=== PATIENT | female | born 1970 | race Two or more races ===

== ENCOUNTER 2017-02-16 14:28 | Outpatient (CLI) | payer MEDICARE, OTHER ==
[~2017-02-16 14:28] MED LIST: ACET325T53 PO; ASPI81TA2 PO; BLOO-367 IN; DOCU-270 PO; Hydralazine Hcl PO; INSU100V28 SQ; Ipratropium Bromide NEB; LEVA1.2524 NEB; LEVO750T21 PO; METF500T PO; NEBU-225 MC; PANT40TA2 PO; PRED20TA PO
== END 2017-02-16 23:59 | disposition home or self-care (01) ==
LOC: RAD 14:28
PROVIDERS: ATTEND Legal Medicine
DX: I51.7 Cardiomegaly (principal); I70.0 Atherosclerosis of aorta; M47.894 Other spondylosis, thoracic region; M40.294 Other kyphosis, thoracic region; M40.46 Postural lordosis, lumbar region; M12.88 Other specific arthropathies, not elsewhere classified, other specified site
CPT/HCPCS: 71020-TC; 72074-TC; 72100-TC

== ENCOUNTER 2019-05-09 14:14 | Inpatient (IN) | payer MEDICARE, MEDICAID ==
[~2019-05-09] VITALS: Ht 167.6 cm; Wt 152.9 kg
[~2019-05-09 14:14] MED LIST changes: +ASPI-1169 PO; -ASPI81TA2 PO
[2019-05-09] MEDS ORDERED: ONDANSETRON HCL/PF 4 MG/2 ML VIAL ONE (15:24)
[2019-05-09] MEDS ORDERED: IV NS 0.9% 1,000 ML BAG IV ONE ×3 (15:30→18:30)
[2019-05-09] MEDS ORDERED: ONDANSETRON HCL/PF 4 MG/2 ML VIAL IVP ONE (15:30)
--- NOTE | 2019-05-09 15:30 | NUR ---
BIBRA79, FROM HOME, C/O CHILLS SINCE THIS MORNING, AFEBRILE, BS 150. PT AAOX4, VSS. ALSO C/O RT LOWER QUAD ABD PAIN. DENIES CP, SOB, DIZZINESS, N/V/D @ THIS TIME. SEEN & EVAL'D BY TASHI ALY. MEDICATED ORDERED. WILL CONT TO MONITOR.
[2019-05-09 15:37] LABS: BASOPHILS % (AUTO) 0.2 % (0.0-2.0); EOSINOPHILS % (AUTO) 0.1 % (0.0-6.0); HEMATOCRIT 44 % (33-45); HEMOGLOBIN 14.8 g/dL (11.5-14.8); LYMPHOCYTES # (AUTO) 0.5 /CMM (0.8-4.8); LYMPHOCYTES % (AUTO) 2.9 % (20.0-44.0); MEAN CORPUSCULAR HGB CONC 34 g/dl (31.0-36.0); MEAN CORPUSCULAR VOLUME 90 fL (82-100); MONOCYTES # (AUTO) 0.3 /CMM (0.1-1.30); MONOCYTES % (AUTO) 1.8 % (2.0-12.0); NEUTROPHILS # (AUTO) 17.3 /CMM (1.8-8.9); PLATELET COUNT (AUTO) 215 /CMM (150-450); RED BLOOD CELL COUNT(AUTO) 4.85 MIL/uL (4.0-5.2); WHITE BLOOD COUNT (AUTO) 18.2 K/uL (4.3-11.0)
[2019-05-09] MEDS ORDERED: MORPHINE SULFATE INJ 2 MG/ML DISP.SYRIN IV ONE (16:30)
[2019-05-09 16:41] LABS: ALBUMIN 3.3 g/dL (3.4-5.0); POTASSIUM 3.9 mmol/L (3.5-5.1); TOTAL PROTEIN, SERUM 7.3 g/dL (6.4-8.2)
[2019-05-09] MEDS ORDERED: KETOROLAC TROMETHAMINE INJ 30 MG/ML VIAL ONE (16:45)
[2019-05-09] MEDS ORDERED: KETOROLAC TROMETHAMINE INJ 30 MG/ML VIAL IV ONE (17:00)
[2019-05-09 17:04] LABS: CALCIUM, SERUM 8.7 mg/dL (8.5-10.1)
[2019-05-09 17:05] LABS: BILIRUBIN,TOTAL 0.7 mg/dL (0.2-1.0)
[2019-05-09 17:18] LABS: BILIRUBIN,DIRECT 0.2 mg/dL (0.0-0.2)
[2019-05-09] MEDS ORDERED: TAMSULOSIN 0.4 MG CAP.SR.24H PO ONE (18:00)
[2019-05-09 18:05] LABS: APPEARANCE,URINE Slightly Cloudy (CLEAR); BILIRUBIN,URINE Negative (NEGATIVE); BLOOD, URINE Large Ery/uL (NEGATIVE); COLOR,URINE Yellow (YELLOW); KETONES,URINE Negative (NEGATIVE); LEUKOCYTE ESTERASE ,URINE Moderate (NEGATIVE); NITRITE, URINE Negative (NEGATIVE); PROTEIN,URINE Trace mg/dl (NEGATIVE); UGLUCOSE Negative (NEGATIVE); UROBILINOGEN,URINE 0.2 EU/dL (0.2)
[2019-05-09] MEDS ORDERED: TAMSULOSIN 0.4 MG CAP.SR.24H ONE (18:05)
[2019-05-09] MEDS ORDERED: LISI10TA59 PO (18:06)
[2019-05-09] MEDS ORDERED: SULF1TAB48 PO (18:06)
[2019-05-09] MEDS ORDERED: CEFTRIAXONE 1GM BAG (ER ONLY) 50 ML IV ONE (18:12)
--- NOTE | 2019-05-09 18:25 | NUR ---
PAGED DR HERNANDEZ-UROLOGY FOR CONSULT
[2019-05-09] MEDS ORDERED: CEFTRIAXONE 1GM BAG (ER ONLY) 1 GM/50 ML PIGGYBACK IV ONE (18:30)
[2019-05-09 18:38] LABS: BACTERIA,URINE Few /HPF (None Seen); SQUAMOUS EPITHELIAL CELL,UR Few /HPF (None Seen); WBC,URINE 21-50 /HPF (0-3)
[2019-05-09 18:39] LABS: MUCUS,URINE Few /LPF (None Seen); URINE AMORPHOUS URATE Few /HPF (None Seen)
--- NOTE | 2019-05-09 19:15 | NUR ---
CALLED NURSING SUP FOR BED
[2019-05-09] MEDS ORDERED: HYDROCODONE/APAP 10/325MG 1 EA TABLET ONE (19:29)
[2019-05-09] MEDS ORDERED: HYDROCODONE/APAP 10/325MG 1 EA TABLET PO ONE (19:30)
[2019-05-09] MEDS ORDERED: IV NS 0.9% 1,000 ML IV PRN (19:58)
[2019-05-09] MEDS ORDERED: DEXTROSE 50%-WATER 50 ML DISP.SYRIN IV PRN (20:00)
[2019-05-09] MEDS ORDERED: Z GUARD REMEDY 2 OZ OINT TP PRN (20:00)
[2019-05-09] MEDS ORDERED: ZOLPIDEM TARTRATE 5 MG TABLET PO PRN (20:00)
[2019-05-09] MEDS ORDERED: MAG HYDROX/AL HYDROX/SIMETH 30 ML UDC PO PRN (20:00)
[2019-05-09] MEDS ORDERED: HYDROCODONE/APAP 5/325MG 1 EACH TABLET PO PRN (20:00)
[2019-05-09] MEDS ORDERED: KETOROLAC TROMETHAMINE INJ 30 MG/ML VIAL IV PRN (20:00)
[2019-05-09] MEDS ORDERED: MAGNESIUM HYDROXIDE 30 ML UDC PO PRN (20:00)
[2019-05-09] MEDS ORDERED: ONDANSETRON HCL/PF 4 MG/2 ML VIAL IVP PRN (20:00)
--- NOTE | 2019-05-09 20:18 | NUR ---
REPORT GIVEN TO LUCRECIA RASMUSSEN FOR MARCK.
--- NOTE | 2019-05-09 20:30 | NUR ---
RN ADMITTING NOTE RECIEVED PT ON ELIDA, AOX4, R/A NO SOB, C/O MILD ABD' PAIN, MED'S GIVEN IN ER, ABLE TO AMBULATE TO BED, IV SITE ON RAC#18G, NS@200ML/HR ORDERED, NPO AFTER MIDNIGHT PER DR HERNANDEZ FOR POSSIBLE STENT PLACEMENT, PT NOTIFIED, WITH CPAP ORDER FOR HS NEEDED, SKIN INTACT, BILAT HEEL REDNESS NOTED, PIC'S TAKEN, ALL NEEDS IN PLACE.
[2019-05-09] MEDS: BLOOD SUGAR DIAGNOSTIC 1 EACH STRIP IN SCH (21:51)
[2019-05-09] MEDS: INSULIN REGULAR, HUMAN 100 UNIT/ML 3 ML VIAL SQ PRN (21:52)
[2019-05-09 22:00] VITALS: BP 108/67
[2019-05-10] VITALS (31 sets, daily range): BP systolic 93–156; BP diastolic 52–74
[2019-05-10] MEDS ORDERED: IV NS 0.9% 1,000 ML BAG IV PRN
[2019-05-10] MEDS: IV NS 0.9% 1,000 ML IV PRN ×3 (00:07→19:17)
--- NOTE | 2019-05-10 04:40 | NUR ---
pt rec'd on room air. pt awake and alert and shows no signs of resp distress noted. pt placed on cpap per md orders. alarms alarms are set and audible. cpap plugged into red outlet. will continue to monitor. Addendum: 05/10/19 at 0449 by BETY ALLEN RT Amended: Links added.
--- NOTE | 2019-05-10 06:13 | NUR ---
RN CLOSING NOTE ENDORSED PT IN BED POSSIBLE STENT PLACEMENT TO DAY BY DR HERNANDEZ, WILL ENDORSE TO AM RN TO OBTAIN CONSENT. IV SITE ON RAC#18G, NS@200ML/HR ORDERED, NPO AFTER MIDNIGHT PER DR HERNANDEZ FOR POSSIBLE STENT PLACEMENT, PT NOTIFIED, WITH CPAP ORDER FOR HS NEEDED, SKIN INTACT, BILAT HEEL REDNESS NOTED, PIC'S TAKEN, ALL NEEDS IN PLACE.
[2019-05-10 07:16] LABS: BASOPHILS % (AUTO) 0.2 % (0.0-2.0); EOSINOPHILS % (AUTO) 0.1 % (0.0-6.0); HEMATOCRIT 38 % (33-45); HEMOGLOBIN 12.6 g/dL (11.5-14.8); LYMPHOCYTES % (AUTO) 4.6 % (20.0-44.0); MEAN CORPUSCULAR HGB CONC 33 g/dl (31.0-36.0); MEAN CORPUSCULAR VOLUME 91 fL (82-100); MONOCYTES % (AUTO) 4.3 % (2.0-12.0); NEUTROPHILS # (AUTO) 20.8 /CMM (1.8-8.9); NEUTROPHILS % (AUTO) 90.8 % (43.0-81.0); PLATELET COUNT (AUTO) 166 /CMM (150-450); RED BLOOD CELL COUNT(AUTO) 4.16 MIL/uL (4.0-5.2); WHITE BLOOD COUNT (AUTO) 22.8 K/uL (4.3-11.0)
[2019-05-10 07:42] LABS: CALCIUM, SERUM 7.9 mg/dL (8.5-10.1); CREATININE 1.3 mg/dL (0.6-1.3); MAGNESIUM 1.3 mg/dL (1.8-2.4); POTASSIUM 3.5 mmol/L (3.5-5.1)
[2019-05-10 07:43] LABS: THYROID STIMULATING HORMONE 1.17 uIU/mL (0.358-3.74)
[2019-05-10] MEDS: BLOOD SUGAR DIAGNOSTIC 1 EACH STRIP IN SCH ×4 (07:57→23:48)
[2019-05-10] MEDS: ACETAMINOPHEN 325 MG TABLET PO PRN ×2 (08:24→19:21)
[2019-05-10] MEDS: METFORMIN 500 MG TABLET PO SCH ×2 (09:00→17:12)
[2019-05-10 10:26] LABS: ABG BASE EXCESS -6.6 mmol/L; ABG OXYGEN SATURATION 99.1 % (92.0-98.5); ABG PCO2 51.4 mmHg (35.0-45.0); ABG PH 7.235 (7.350-7.450); ABG PO2 295.8 mmHg (75.0-100.0); AaDO2 365.8 mmHg; COHb 1.5 % (0.5-1.5); MetHb 0.5 % (0.0-1.5); O2Hb 97.1 % (94.0-97.0); SITE, ABG Left Radial; VENT MODE, BG 15L NON REBREATHER
--- NOTE | 2019-05-10 10:30 | NUR ---
RN NOTE PT WAS OFF CIPAP SINCE 729, OKAY IN THE PROCESS PUMPER, AOX4, NPO EXCEPT MEDS, CO OF HUNGER, HEADACHE AND ABDOMINAL PAIN WITHOUT NAUSEA. TYLENOL GIVEN, RELIEF A LITTLE FROM PAIN OBTAINED. AROUND 09 PT CO ABOUT CHILLS AND BEING COLD, WARM BLANKETS OFFERED, TEMP ORALLY 97.8F, RECTALLY 98.9F, THEN BECAME VERY TACHYPNEIC , RR 33-35 BREATHS/MIN, SATURATION DROPPED TO 66% ON ROOM AIR. RESPIRATORY TEAM NOTIFIED AND ARRIVED, PT PLACE ON OXYGEN NON REBREATHER MASK, ABG DRAWN, WALKER CHOI NOTIFIED. STAT CXR ORDERED, PT PLACED ON BIBAP, ABG RESULTS MADE AWARE TO ESTIVEN CHOI AND ORDERED TO TRANSFER TO ICU. PT FEELS BETTER AFTER OXYGEN TREATMENT, HR DECREASED FROM 151 TO 121, TEMP 100.2F AX. BP 156/54. PT TRANSFERRED TO ICU RM 257, REPORT GIVEN TO LUCRECIA THAKKAR. DR CRAWFORD NOTIFIED. PENDING CXR. DR HERNANDEZ, UROLOGIST [phone], NOTIFIED AT 1117 ABOUT THE SITUATION SINCE PT WAS WAITING FOR LEFT URETERAL STENT PLACEMENT AT TODAY 1230.
--- NOTE | 2019-05-10 11:00 | NUR ---
RN NOTES RECEIVED PT IN ROOM 257, ON BIPAP, ABLE TO COMMUNICATE. O2 SAT 96%, HR IN 120'S, R AC IV G 20 AND L AC IV G 18 SITES , CLEAN,DRY AND INTACT, PT KEPT NPO BUT WANTS TO EAT.SR UP x3, CALL LIGHT WITHIN EASY REACH, BED LOCKED AND IN LOWEST POSITION, CONTINUE TO MONITOR. Addendum: 05/10/19 at 1357 by BIJAN DRIVER RN CORRECTION PT HAS L FA IV SITE G 22 PLEASE DISREGARD L AC IV G 18
--- NOTE | 2019-05-10 11:00 | NUR ---
RT NOTES CALLED TO PATIENTS ROOM BY RN. PATIENT RR 35, WITH DYSPNEA, SPO2 77%. PLACED ON NON REBREATHER 15L 100%. STAT ABG TAKEN. PLACED ON BIPAP 15-5, RATE 10, 35%, AND TRANSPORTED TO ICU PER MD ORDERS. WILL MONITOR CLOSELY. Addendum: 05/10/19 at 1644 by ERIK BURNS RT Amended: Links added.
--- NOTE | 2019-05-10 11:15 | NUR ---
RN NOTES PT IS A/Ox4, REFUSED TO KEEP BIPAP ON ,O2 SAT WNL, NO RESPIRATORY DISTRESS NOTED, DR CRAWFORD NOTIFED, NEW ORDER RECEIVED . CONTINUE TO MONITOR.
--- NOTE | 2019-05-10 11:23 | NUR ---
PT. PLACED INTO 2 L/M VIA NASAL CANNULA AND PT REFUSED BIPAP. BIPAP ON STAND BY @ BEDSIDE. Addendum: 05/10/19 at 1124 by MILI ODOM RT Amended: Links added.
[2019-05-10] MEDS ORDERED: ALBUTEROL FS 2.5 MG/3 ML VIAL.NEB NEB PRN (12:00)
[2019-05-10] MEDS: Magnesium 1GM/D5W 100ML PREMIX 100 ML IV SCH ×2 (12:04→13:16)
[2019-05-10] MEDS: INSULIN REGULAR, HUMAN 100 UNIT/ML 3 ML VIAL SQ PRN ×3 (12:06→23:49)
[2019-05-10 12:43] LABS: ABG BASE EXCESS -2.9 mmol/L; ABG OXYGEN SATURATION 93.4 % (92.0-98.5); ABG PCO2 37.8 mmHg (35.0-45.0); ABG PH 7.378 (7.350-7.450); ABG PO2 63.4 mmHg (75.0-100.0); AaDO2 91.6 mmHg; COHb 1.2 % (0.5-1.5); MetHb 0.5 % (0.0-1.5); O2Hb 91.8 % (94.0-97.0); SITE, ABG Right Radial; VENT MODE, BG nasal cannula
--- NOTE | 2019-05-10 14:45 | NUR ---
RN NOTES PT O2 SAT DOWN TO %82 WHILE SLEEPING , DR YVETTE CHOUDHARY, PT PLACED ON BIPAP PER MD ORDER WHILE PT IS SLEEPING. O
--- NOTE | 2019-05-10 15:00 | NUR ---
PT. WANTS TO SLEEP AND WANTS TO PLACE INTO BIPAP. RN AWARE. Addendum: 05/10/19 at 1516 by MILI ODOM RT Amended: Links added.
--- NOTE | 2019-05-10 15:00 | NUR ---
RN NOTES 02 SAT 92% AT THIS TIME , PT ON BIPAP AND SLEEPING .
--- NOTE | 2019-05-10 16:00 | NUR ---
RN NOTES PT STILL ON BIPAP, O2 SAT IN LOW 90'S , PT SLEEPING , NO SOB NOTED, CONTINUE TO MONITOR .
--- NOTE | 2019-05-10 17:00 | NUR ---
PLACED BACK INTO 2 LPM NASAL CANNULA. BIPAP ON STAND BY @ BEDSIDE Addendum: 05/10/19 at 1732 by MILI ODOM RT Amended: Links added.
--- NOTE | 2019-05-10 17:00 | NUR ---
RN NOTES PT HAS NOT VOIDED YET , WALKER GLUE CLAMP OPERATOR NOTIFED, CAMARA INSERTED PER GLUE CLAMP OPERATOR ORDER , 600CC URINE OUTPUT DRAINED.
[2019-05-10] MEDS: CEFTRIAXONE 1 G in IV D5W 50 ML IV SCH (17:14)
--- NOTE | 2019-05-10 18:00 | NUR ---
RN NOTES VSS STABLE, PT ON 2L O2 N/C AT THIS TIME , NO DISTRESS NOTED, CAMARA DRINING TO GRAVITY WITH CAROL COLOR URINE, NO STONE NOTED IN THE URINE , NS AT 200CC/HR INFUSING ,PT WILL NOT HAVE ANY PROCEDURES TOMORROW PER WALKER BRAND STRATEGIST. WILL ENDORSE TO ACCESS ASSOC NURSE FOR CONTINUITY OF CARE.
--- NOTE | 2019-05-10 19:00 | NUR ---
RECEIVED PATIENT IN NO ACUTE DISTRESS IN BED. PATIENT IS ON RA AND TOLERATING WELL. PATIENT IS A/O X 4 AND ABLE TO MAKE NEEDS KNOWN. PATIENT NOT COMPLAINING OF ANY SHORTNESS OF BREATH, DIFFICULTY BREATHING OR PAIN AT THIS TIME. PATIENT HAS CAMARA CATHETER THAT IS CLEAN DRY INTACT AND PATENT WITH YELLOW URINE DRAINING. PATIENT HAS LEFT FOREARM 22G THAT IS CLEAN DRY INTACT AND PATENT WITH NS @ 200ML/HR. PATIENT HAS RIGHT AC 20G THAT IS CLEAN DRY INTACT AND PATENT WITH SALINE LOCK. BED IN LOW LOCK POSITION WITH RAILS UP X 2. CALL LIGHT WITHIN REACH AND ALL SAFETY MEASURES ENSURED AND CARRIED OUT. WILL CONTINUE TO MONITOR.
[2019-05-10] MEDS ORDERED: TRAMADOL HCL 50 MG TABLET PO PRN ×2 (22:00)
--- NOTE | 2019-05-10 22:00 | NUR ---
PT RCVD ON 2L NC, PLACED BACK ON NOC AVAPS. PT IS ALERT AND AWAKE, NO RESPIRATORY DISTRESS OR SOB NOTED AT THIS TIME . SKIN INTACT. WILL CONTINUE TO MONITOR FOR ANY CHANGES
[2019-05-11] VITALS (29 sets, daily range): BP systolic 78–134; BP diastolic 41–83
[2019-05-11] MEDS: IV NS 0.9% 1,000 ML IV PRN ×3 (00:50→17:59)
[2019-05-11 04:38] LABS: BASOPHILS % (AUTO) 0.4 % (0.0-2.0); EOSINOPHILS % (AUTO) 0.8 % (0.0-6.0); HEMATOCRIT 37 % (33-45); HEMOGLOBIN 12.3 g/dL (11.5-14.8); LYMPHOCYTES # (AUTO) 1.4 /CMM (0.8-4.8); LYMPHOCYTES % (AUTO) 13.2 % (20.0-44.0); MEAN CORPUSCULAR HGB CONC 33 g/dl (31.0-36.0); MEAN CORPUSCULAR VOLUME 91 fL (82-100); MONOCYTES # (AUTO) 0.8 /CMM (0.1-1.30); MONOCYTES % (AUTO) 7.5 % (2.0-12.0); NEUTROPHILS # (AUTO) 8.5 /CMM (1.8-8.9); NEUTROPHILS % (AUTO) 78.1 % (43.0-81.0); PLATELET COUNT (AUTO) 130 /CMM (150-450); RED BLOOD CELL COUNT(AUTO) 4.09 MIL/uL (4.0-5.2); WHITE BLOOD COUNT (AUTO) 10.8 K/uL (4.3-11.0)
[2019-05-11 04:46] LABS: CALCIUM, SERUM 8.5 mg/dL (8.5-10.1); CREATININE 1.4 mg/dL (0.6-1.3); POTASSIUM 3.8 mmol/L (3.5-5.1)
--- NOTE | 2019-05-11 07:37 | NUR ---
PATIENT REMAINS IN NO ACUTE DISTRESS IN BED. PATIENT DID NOT HAVE ANY SIGNIFICANT CHANGE IN CONDITION DURING SHIFT. ALL NEEDS MET, ALL ORDERS CARRIED OUT. WILL ENDORSE CARE TO AM RN FOR CONTINUITY OF CARE.
[2019-05-11] MEDS: INSULIN REGULAR, HUMAN 100 UNIT/ML 3 ML VIAL SQ PRN ×4 (07:42→22:55)
--- NOTE | 2019-05-11 07:45 | NUR ---
ENGINEERING CONSULTANT: pt.is awake, Ox4, got tramadol around 06.00, now no pain, was on nocturnal Bipap, now n/c 2L, O2sat. WNL, no SOB, SR, SBP over 100, urine out 2000ml, little hematuria one episode over night by report, WBC down to 10.8, is in room, updated with all above
[2019-05-11] MEDS: BLOOD SUGAR DIAGNOSTIC 1 EACH STRIP IN SCH ×4 (07:46→22:56)
--- NOTE | 2019-05-11 08:50 | NUR ---
AUTISM MOTOR SPECIALIST: ESTIVEN Gonzalez is in room, updated with pt.current status, VS, pain level, IVF, I/O, nocturnal Bipap, meds, labs, see new orders
[2019-05-11] MEDS: METFORMIN 500 MG TABLET PO SCH ×2 (09:02→16:53)
--- NOTE | 2019-05-11 11:30 | NUR ---
NURSE SEXUAL ASSAULT: is updated with pt.current status, VS, O2sat. on 2 L n/c, IVF, I/O, pain level, labs
[2019-05-11] MEDS: ACETAMINOPHEN 325 MG TABLET PO PRN (11:35)
--- NOTE | 2019-05-11 15:30 | NUR ---
CERTIFIED PHARMACY TECHNICIAN: pt.is A/Ox4, no c/o, no Pain, no SOB, SR, SBP over 100, O2sat. over 94%, ordered transfer to [facility]/Tele
--- NOTE | 2019-05-11 17:00 | NUR ---
REFURBISH TECHNICIAN: pt.is transferred to [facility], full report given, included Dr.Peleg ott
--- NOTE | 2019-05-11 17:17 | NUR ---
rogers rn notes received pt from g[facility]ell gaytan (icu). pt belongings transferred/chart/bipap equipment. pt on monitor sr 80's. vss. oriented to unit. 500ml in simental bag. will cont to monitor.
[2019-05-11] MEDS: CEFTRIAXONE 1 G in IV D5W 50 ML IV SCH (17:23)
--- NOTE | 2019-05-11 19:00 | NUR ---
rogers rn notes pt stable, sitting in bed, talking on phone. no s/sx of resp distress. will endorse to pm nurse for hamlet.
[2019-05-12] VITALS: BP 113/74
[2019-05-12] MEDS: IV NS 0.9% 1,000 ML IV PRN ×2 (01:44→10:09)
[2019-05-12 04:00] VITALS: BP 128/74
[2019-05-12 06:31] LABS: BASOPHILS % (AUTO) 0.4 % (0.0-2.0); EOSINOPHILS % (AUTO) 1.7 % (0.0-6.0); HEMATOCRIT 37 % (33-45); HEMOGLOBIN 12.3 g/dL (11.5-14.8); LYMPHOCYTES # (AUTO) 1.7 /CMM (0.8-4.8); LYMPHOCYTES % (AUTO) 24.6 % (20.0-44.0); MEAN CORPUSCULAR HGB CONC 33 g/dl (31.0-36.0); MEAN CORPUSCULAR VOLUME 91 fL (82-100); MONOCYTES # (AUTO) 0.5 /CMM (0.1-1.30); MONOCYTES % (AUTO) 6.6 % (2.0-12.0); NEUTROPHILS # (AUTO) 4.6 /CMM (1.8-8.9); NEUTROPHILS % (AUTO) 66.7 % (43.0-81.0); PLATELET COUNT (AUTO) 125 /CMM (150-450); RED BLOOD CELL COUNT(AUTO) 4.07 MIL/uL (4.0-5.2); WHITE BLOOD COUNT (AUTO) 6.8 K/uL (4.3-11.0)
[2019-05-12 06:52] LABS: ALBUMIN 2.1 g/dL (3.4-5.0); BILIRUBIN,TOTAL 0.2 mg/dL (0.2-1.0); CALCIUM, SERUM 8.6 mg/dL (8.5-10.1); CREATININE 0.5 mg/dL (0.6-1.3); MAGNESIUM 1.6 mg/dL (1.8-2.4); PHOSPHORUS 3.6 mg/dL (2.5-4.9); POTASSIUM 3.9 mmol/L (3.5-5.1); TOTAL PROTEIN, SERUM 6.1 g/dL (6.4-8.2)
--- NOTE | 2019-05-12 07:00 | NUR ---
RN AM SHIFT NOTE PATIENT AWAKE ALERT AND ORIENTED. REQUEST FOR REMOVAL OF BIPAP. RN ASSESS RESPIRATORY STATUS, NON LABORED AND SATURATION WNL. PATIENT VERBALIZED NO DISTRESS AT THIS TIME. PATIENT VERBALIZE NO SEVERE PAIN AT THIS TIME. IV PATENT AND NO INFILTRATION, SINUS RHYTHM ON MONITOR. BED IN LOW POSITION, CALL LIGHT WITHIN REACH. CONTINUE TO MONITOR.
[2019-05-12 08:00] VITALS: BP 126/77
[2019-05-12] MEDS: BLOOD SUGAR DIAGNOSTIC 1 EACH STRIP IN SCH ×4 (08:01→22:58)
[2019-05-12] MEDS: METFORMIN 500 MG TABLET PO SCH ×2 (08:46→17:23)
[2019-05-12] MEDS: Magnesium 1GM/D5W 100ML PREMIX 100 ML IV SCH ×2 (10:07→11:18)
[2019-05-12 12:00] VITALS: BP 128/88
[2019-05-12] MEDS: INSULIN REGULAR, HUMAN 100 UNIT/ML 3 ML VIAL SQ PRN ×3 (12:18→22:59)
--- NOTE | 2019-05-12 15:00 | NUR ---
TOOL CRIB MANAGER NOTE RECEIVED REPORT FROM ANDREW SINGER. PT A/OX4, AWAKE AND CHILDREN AT BEDSIDE. NO SIGN OF RESPIRATORY/CARDIAC DISTRESS OR SOB NOTED. ON MONITOR SINUS RHYTHM. NO COMPLAIN OF PAIN. BED IN LOW POSITION, CALL LIGHT WITHIN REACH. BEDSIDE COMMODE. CONTINUE TO MONITOR.
[2019-05-12 16:00] VITALS: BP 125/60
[2019-05-12] MEDS: CEFTRIAXONE 1 G in IV D5W 50 ML IV SCH (18:22)
--- NOTE | 2019-05-12 18:52 | NUR ---
LOCATION DIRECTOR NOTE PT RESTING AT BEDSIDE COMFORTABLY. ON TELE MONITOR SR WITH HR 76. NO RESPIRATORY/CARDIAC DISTRESS OR SOB AT THIS TIME. SAFETY MEASURES IN PLACE. BED LOW, LOCKED, CALL LIGHT WITHIN REACH. ALL NEEDS ATTENDANT. WILL ENDORSE TO PM NURSE FOR MARCK.
[2019-05-12 20:00] VITALS: BP 128/71
[2019-05-13] VITALS: BP 128/71
[2019-05-13] MEDS: IV NS 0.9% 1,000 ML IV PRN (02:50)
[2019-05-13 04:00] VITALS: BP 113/72
[2019-05-13 07:08] LABS: BASOPHILS % (AUTO) 0.5 % (0.0-2.0); HEMATOCRIT 37 % (33-45); HEMOGLOBIN 12.3 g/dL (11.5-14.8); LYMPHOCYTES # (AUTO) 1.8 /CMM (0.8-4.8); LYMPHOCYTES % (AUTO) 32.1 % (20.0-44.0); MEAN CORPUSCULAR HGB CONC 33 g/dl (31.0-36.0); MEAN CORPUSCULAR VOLUME 90 fL (82-100); MONOCYTES # (AUTO) 0.4 /CMM (0.1-1.30); MONOCYTES % (AUTO) 6.9 % (2.0-12.0); NEUTROPHILS # (AUTO) 3.4 /CMM (1.8-8.9); NEUTROPHILS % (AUTO) 58.5 % (43.0-81.0); PLATELET COUNT (AUTO) 159 /CMM (150-450); WHITE BLOOD COUNT (AUTO) 5.7 K/uL (4.3-11.0)
[2019-05-13 07:24] LABS: ALBUMIN 2.2 g/dL (3.4-5.0); BILIRUBIN,TOTAL 0.2 mg/dL (0.2-1.0); CALCIUM, SERUM 8.6 mg/dL (8.5-10.1); CREATININE 0.5 mg/dL (0.6-1.3); MAGNESIUM 1.4 mg/dL (1.8-2.4); PHOSPHORUS 4.8 mg/dL (2.5-4.9); POTASSIUM 3.5 mmol/L (3.5-5.1); TOTAL PROTEIN, SERUM 6.3 g/dL (6.4-8.2)
--- NOTE | 2019-05-13 07:30 | NUR ---
RN NOTES RECEIVED PATIENT IN BED, ASLEEP BUT AWAKEN BY VERBAL STIMULI, ON BIPAP FROM NIGHT, TOLERATING WELL, NOT ON ANY FORM DISTRESS, NO COMPLAINTS OF PAIN OF ANY KIND, PATIENT ABLE TO MAKE NEEDS KNOWN, SINUS RHYTHM ON THE MONITOR, HR ON THE 60'S. IV ACCESS ON THE LEFT HAND G [address], DRESSING INTACT, FLUSHES WELL. PATIENT ABLE TO MOVE ABOUT IN BED. ENCOURAGE TO VERBALIZE FEELINGS AND CONCERNS/ CALL FOR HELP OR ASSISTANCE. SAFETY MEASURES OBSERVED AND MAINTAINED. CALL LIGHT PLACED WITHIN REACH, WILL CONTINUE TO MONIKER ATTEND TO NEEDS
[2019-05-13 08:00] VITALS: BP 124/83
[2019-05-13] MEDS: BLOOD SUGAR DIAGNOSTIC 1 EACH STRIP IN SCH ×2 (08:15→12:12)
[2019-05-13] MEDS: METFORMIN 500 MG TABLET PO SCH (08:17)
[2019-05-13] MEDS: INSULIN REGULAR, HUMAN 100 UNIT/ML 3 ML VIAL SQ PRN (08:18)
[2019-05-13] MEDS: Magnesium 1GM/D5W 100ML PREMIX 100 ML IV SCH ×3 (10:10→12:12)
--- NOTE | 2019-05-13 12:00 | NUR ---
RN NOTES SEEN AND EXAMINED BY DR. FALL, WITH ORDERS FOR DISCHARGE. ORDERS NOTED AND CARRIED OUT. PLAN OF CARE DISCUSSED WITH THE PATIENT. FACILITATED DISCHARGE. PATIENT ASKED TO BE DISCHARGED WHEN DAUGHTER ARRIVES TO PICK HER UP. CLAIMED TO HAVE RECEIVED PNEUMONIA AND FLU VACCINE AT DR. FALL'S CLINIC.
--- NOTE | 2019-05-13 14:00 | NUR ---
RN NOTES PATIENT DISCHARGE. DAUGHTER AT BEDSIDE. PATIENT REFUSED FOOT PICTURES. ALL VALUABLES ACCOUNTED FOR AND RETURNED BACK TO THE PATIENT. ALL DISCHARGE AND MEDICATION INSTRUCTIONS GIVEN TO THE PATIENT. PRESCRIPTION AND DISCHARGE PACKET HANDED DOWN TO THE PATIENT. ID BAND REMOVED. IV ACCESS DISCONTINUED. ALL MEDICATION RETURNED BACK FROM THE PATIENT. PATIENT WENT OUT OF THE UNIT ACCOMPANIED BY DAUGHTER
[2019-05-15 06:07] LABS: *SPE A/G RATIO 0.8 (0.7-1.7); *SPE ALBUMIN 2.3 g/dL (2.9-4.4); *SPE ALPHA-1-GLOBULIN 0.3 g/dL (0.0-0.4); *SPE M-SPIKE Not Observed g/dL (Not Observed); *SPEGAMMA GLOBULIN 0.7 g/dL (0.4-1.8)
[2019-05-15 14:07] LABS: PTH, INTACT 40 pg/mL (15-65)
== END 2019-05-13 14:00 | disposition home or self-care (01) | DRG 871 ==
LOC: ER 14:17 → MEDSG1 20:01 → TELE1 05-10 10:09 → ICU 05-10 10:41 → TELE-TD 05-11 16:59 → TELE1 05-12 10:16 → MEDSG1 05-13 10:09
PROVIDERS: ATTEND Legal Medicine
PROC: 5A09457 Assistance with Respiratory Ventilation, 24-96 Consecutive Hours, Continuous Positive Airway Pressure (ICD-10-PCS; principal; 2019-05-10)
DX: A41.9 Sepsis, unspecified organism (principal); J96.02 Acute respiratory failure with hypercapnia; N17.0 Acute kidney failure with tubular necrosis; E66.2 Morbid (severe) obesity with alveolar hypoventilation; Z68.43 Body mass index [BMI] 50.0-59.9, adult; N13.6 Pyonephrosis; I10 Essential (primary) hypertension; E11.9 Type 2 diabetes mellitus without complications; K42.9 Umbilical hernia without obstruction or gangrene; J44.9 Chronic obstructive pulmonary disease, unspecified; B96.4 Proteus (mirabilis) (morganii) as the cause of diseases classified elsewhere; E83.42 Hypomagnesemia; F17.200 Nicotine dependence, unspecified, uncomplicated; Z79.82 Long term (current) use of aspirin; Z79.4 Long term (current) use of insulin
CPT/HCPCS: 36415; 36600; 71045-TC; 80048-TC; 80053-TC; 80061-TC; 80076-TC; 81000-TC; 82550-TC; 82803-TC; 82962-TC; 83605-TC; 83690-TC; 83735-TC; 83970; 84100-TC; 84155; 84165; 84443-TC; 84703-TC; 85025-TC; 85610-TC; 87081-TC; 87086-TC; 87186-TC; 94799-TC; A4217; G0378; J0696; J1815; J1885; J2405; J3475; J7030; J7060

== ENCOUNTER 2019-10-05 08:20 | Outpatient (CLI) | payer MEDICARE, OTHER ==
[~2019-10-05 08:20] MED LIST changes: -ACET325T53 PO; -ASPI-1169 PO; -BLOO-367 IN; -DOCU-270 PO; -Hydralazine Hcl PO; -INSU100V28 SQ; -Ipratropium Bromide NEB; -LEVA1.2524 NEB; -LEVO750T21 PO; +LISI-605 PO; -NEBU-225 MC; -PANT40TA2 PO; -PRED20TA PO; +SULF1TAB48 PO
[2019-10-05 10:05] LABS: BASOPHILS % (AUTO) 0.7 % (0.0-2.0); EOSINOPHILS % (AUTO) 1.2 % (0.0-6.0); HEMATOCRIT 44 % (33-45); HEMOGLOBIN 14.4 g/dL (11.5-14.8); LYMPHOCYTES # (AUTO) 1.8 /CMM (0.8-4.8); LYMPHOCYTES % (AUTO) 35.8 % (20.0-44.0); MEAN CORPUSCULAR HGB CONC 33 g/dl (31.0-36.0); MEAN CORPUSCULAR VOLUME 91 fL (82-100); MONOCYTES # (AUTO) 0.5 /CMM (0.1-1.30); MONOCYTES % (AUTO) 9.5 % (2.0-12.0); NEUTROPHILS # (AUTO) 2.7 /CMM (1.8-8.9); NEUTROPHILS % (AUTO) 52.8 % (43.0-81.0); PLATELET COUNT (AUTO) 184 /CMM (150-450); RED BLOOD CELL COUNT(AUTO) 4.86 MIL/uL (4.0-5.2); WHITE BLOOD COUNT (AUTO) 5.2 K/uL (4.3-11.0)
[2019-10-05 10:19] LABS: ALBUMIN 3.2 g/dL (3.4-5.0); BILIRUBIN,TOTAL 0.3 mg/dL (0.2-1.0); CALCIUM, SERUM 8.7 mg/dL (8.5-10.1); CREATININE 0.6 mg/dL (0.6-1.3); POTASSIUM 4.2 mmol/L (3.5-5.1); TOTAL PROTEIN, SERUM 7.5 g/dL (6.4-8.2)
[2019-10-05] MEDS ORDERED: IOHEXOL-300 100 ML VIAL IV ONE (10:33)
[2019-10-05] MEDS ORDERED: CT SWABBABLE VALVE TRANS SET 1 EA INFUS.SET MC ONE (10:33)
[2019-10-05] MEDS ORDERED: IV NS 0.9% 250 ML IV ONE (10:33)
== END 2019-10-05 23:59 | disposition home or self-care (01) ==
LOC: CT 08:20
PROVIDERS: ATTEND Legal Medicine
DX: N20.0 Calculus of kidney (principal); I10 Essential (primary) hypertension; D64.9 Anemia, unspecified; D68.59 Other primary thrombophilia; J98.11 Atelectasis; K42.9 Umbilical hernia without obstruction or gangrene; R53.1 Weakness
CPT/HCPCS: 36415; 74178; 80053; 85025; 85610; 85730; J7050; Q9967

== ENCOUNTER 2021-01-05 19:21 | Inpatient (IN) | payer MEDICARE, OTHER ==
[~2021-01-05] VITALS: Ht 170.2 cm; Wt 150.1 kg
[~2021-01-05 19:21] MED LIST changes: -LISI-605 PO; +LISI10TA30 PO
[2021-01-05] MEDS ORDERED: ACETAMINOPHEN ES 500 MG TABLET ONE (19:50)
[2021-01-05] MEDS ORDERED: CYCLOBENZAPRINE 10 MG TABLET ONE (19:50)
[2021-01-05] MEDS ORDERED: ACETAMINOPHEN ES 500 MG TABLET PO ONE (20:00)
[2021-01-05] MEDS ORDERED: IV NS 0.9% 1,000 ML BAG IV ONE (20:00)
[2021-01-05] MEDS ORDERED: CYCLOBENZAPRINE 10 MG TABLET PO ONE (20:00)
--- NOTE | 2021-01-05 20:05 | NUR ---
BIBFAMILY FROM HOME TO ER BED 12. AAOX4. NOT IN RESOP DISTRESS. CAME IN FOR R FLANK PAIN STARTED TODAY. PER PT, IT FEELS LIKE WHEN SHE HAD A KIDNEY STONE. PAIN IS 9/10. PROVIDER WAS AT THE BEDSIDE FOR EVAL. ORDERS RECEIVED, NOTED AND CARRIED OUT. IV LINE ESTABLISHED ON R AC 20G, BLOOD DRAWN. URINE COLLECTED AND SENT TO LAB
[2021-01-05 20:13] LABS: BASOPHILS # (AUTO) 0.1 /CMM (0.0-0.2); BASOPHILS % (AUTO) 0.6 % (0.0-2.0); EOSINOPHILS % (AUTO) 1.7 % (0.0-6.0); HEMATOCRIT 46 % (33-45); HEMOGLOBIN 15.3 g/dL (11.5-14.8); LYMPHOCYTES # (AUTO) 2.7 /CMM (0.8-4.8); LYMPHOCYTES % (AUTO) 25.6 % (20.0-44.0); MEAN CORPUSCULAR HGB CONC 34 g/dl (31.0-36.0); MEAN CORPUSCULAR VOLUME 92 fL (82-100); MONOCYTES # (AUTO) 0.6 /CMM (0.1-1.30); MONOCYTES % (AUTO) 5.6 % (2.0-12.0); NEUTROPHILS % (AUTO) 66.5 % (43.0-81.0); PLATELET COUNT (AUTO) 221 /CMM (150-450); RED BLOOD CELL COUNT(AUTO) 4.94 MIL/uL (4.0-5.2); WHITE BLOOD COUNT (AUTO) 10.6 K/uL (4.3-11.0)
[2021-01-05 20:18] LABS: BILIRUBIN,URINE NEGATIVE (NEGATIVE); COLOR,URINE YELLOW (YELLOW); LEUKOCYTE ESTERASE ,URINE MODERATE (NEGATIVE); NITRITE, URINE POSITIVE (NEGATIVE); PROTEIN,URINE 100 mg/dl (NEGATIVE); UGLUCOSE NEGATIVE (NEGATIVE); UROBILINOGEN,URINE 0.2 EU/dL (0.2)
[2021-01-05 20:21] LABS: CALCIUM, SERUM 9.3 mg/dL (8.5-10.1); CREATININE 0.9 mg/dL (0.6-1.3); POTASSIUM 4.1 mmol/L (3.5-5.1)
[2021-01-05 20:24] LABS: BACTERIA,URINE 4+ /HPF (None Seen); RBC,URINE 51-80 /HPF (0-2); SQUAMOUS EPITHELIAL CELL,UR Few /HPF (None Seen); WBC,URINE TOO NUMEROUS TO COUN /HPF (0-3)
[2021-01-05 20:25] LABS: CALCIUM OXALATE CRYSTALS,UR Few /HPF (None Seen)
[2021-01-05 20:27] LABS: ALBUMIN 3.2 g/dL (3.4-5.0); BILIRUBIN,DIRECT 0.1 mg/dL (0.0-0.2); BILIRUBIN,TOTAL 0.2 mg/dL (0.2-1.0); TOTAL PROTEIN, SERUM 7.5 g/dL (6.4-8.2)
[2021-01-05] MEDS ORDERED: CEFTRIAXONE 1GM BAG (ER ONLY) 1 GM/50 ML PIGGYBACK IV ONE (20:30)
--- NOTE | 2021-01-05 20:43 | NUR ---
BLOOD CULTURE COLLECTED AND SENT TO LAB
[2021-01-05] MEDS ORDERED: ONDANSETRON HCL/PF 4 MG/2 ML VIAL IVP PRN (23:00)
[2021-01-05] MEDS ORDERED: KETOROLAC TROMETHAMINE INJ 30 MG/ML VIAL IV PRN (23:00)
[2021-01-05] MEDS ORDERED: Z GUARD REMEDY 2 OZ OINT TP PRN (23:00)
[2021-01-05] MEDS ORDERED: MAG HYDROX/AL HYDROX/SIMETH 30 ML UDC PO PRN (23:00)
[2021-01-05] MEDS ORDERED: MAGNESIUM HYDROXIDE 30 ML UDC PO PRN (23:00)
[2021-01-05] MEDS ORDERED: ACETAMINOPHEN 325 MG TABLET PO PRN (23:00)
[2021-01-05] MEDS ORDERED: ZOLPIDEM TARTRATE 5 MG TABLET PO PRN (23:00)
[2021-01-05] MEDS ORDERED: HYDROCODONE/APAP 5/325MG TABLET PO PRN (23:00)
--- NOTE | 2021-01-05 23:15 | NUR ---
REPORT GIVEN TO LUCERCIA MARION FOR MARCK
--- NOTE | 2021-01-05 23:20 | NUR ---
PT TRANSPORTED TO UNIT ON [place] WITH EMT ANDN RN AT BEDSIDE ON STABLE CONDITION.
[2021-01-05 23:22] VITALS: BP 115/57
[2021-01-05 23:30] VITALS: BP 115/57
--- NOTE | 2021-01-06 00:18 | NUR ---
CALLED THE RT RE: CPAP.
[2021-01-06] MEDS ORDERED: ZOSYN IVPB 3.375 G in IV D5W 50ml IV SCH (00:30)
--- NOTE | 2021-01-06 00:36 | NUR ---
RT CAME TO START THE CPAP.
[2021-01-06] MEDS: ENOXAPARIN SODIUM 40 MG/0.4 ML DISP.SYRIN SQ SCH ×2 (00:39→21:42)
[2021-01-06] MEDS: IV NS 0.9% 1,000 ML IV PRN (00:40)
[2021-01-06] MEDS ORDERED: MEROPENEM 500 MG in IV NS 0.9% 50 ML IV SCH (01:00)
[2021-01-06] MEDS ORDERED: MEROPENEM 500 MG in IV NS 0.9% 50 ML IV ONE (02:00)
[2021-01-06] MEDS ORDERED: MEROPENEM 500 MG VIAL IV ONE (02:38)
[2021-01-06 07:07] LABS: BASOPHILS % (AUTO) 0.5 % (0.0-2.0); EOSINOPHILS % (AUTO) 2.6 % (0.0-6.0); HEMATOCRIT 43 % (33-45); HEMOGLOBIN 14.2 g/dL (11.5-14.8); LYMPHOCYTES # (AUTO) 2.7 /CMM (0.8-4.8); LYMPHOCYTES % (AUTO) 37.1 % (20.0-44.0); MEAN CORPUSCULAR HGB CONC 33 g/dl (31.0-36.0); MEAN CORPUSCULAR VOLUME 93 fL (82-100); MONOCYTES # (AUTO) 0.5 /CMM (0.1-1.30); MONOCYTES % (AUTO) 7.1 % (2.0-12.0); NEUTROPHILS # (AUTO) 3.9 /CMM (1.8-8.9); NEUTROPHILS % (AUTO) 52.7 % (43.0-81.0); PLATELET COUNT (AUTO) 196 /CMM (150-450); RED BLOOD CELL COUNT(AUTO) 4.61 MIL/uL (4.0-5.2); WHITE BLOOD COUNT (AUTO) 7.3 K/uL (4.3-11.0)
[2021-01-06 07:28] LABS: CALCIUM, SERUM 8.3 mg/dL (8.5-10.1); CREATININE 0.6 mg/dL (0.6-1.3); MAGNESIUM 1.9 mg/dL (1.8-2.4); PHOSPHORUS 3.9 mg/dL (2.5-4.9); POTASSIUM 4.3 mmol/L (3.5-5.1)
[2021-01-06] MEDS ORDERED: ALBU18HF2 INH (07:57)
[2021-01-06] MEDS ORDERED: GLIP2.5T3 PO (07:57)
[2021-01-06] MEDS ORDERED: METF750T46 PO (07:57)
[2021-01-06 08:00] VITALS: BP 124/73
--- NOTE | 2021-01-06 08:31 | NUR ---
WOUND CARE CONSULT: PT PRESENTS WITH REDNESS AND DRY LESIONS TO HEELS, PRESENT ON ADMISSION. VARICOSITIES NOTED TO LOWER LEGS. PT REFUSED FULL SKIN ASSESSMENT AND STATES THAT SHE IS CONTINENT AND AMBULATORY. PT REPORTS ITCHING OF HEELS. DPM CONSULT CALLED TO DR HAMPAPUR. [facility]SON IN AGREEMENT WITH PLAN OF CARE.
[2021-01-06] MEDS ORDERED: DEXTROSE 50%-WATER 50 ML DISP.SYRIN IV PRN (10:30)
[2021-01-06] MEDS ORDERED: ALBUTEROL FS 2.5 MG/3 ML VIAL.NEB NEB PRN (11:00)
--- NOTE | 2021-01-06 11:30 | NUR ---
iv not functioning-removed and restarted lt. hand with #22 Angio
[2021-01-06] MEDS: INSULIN REGULAR, HUMAN 100 UNIT/ML 3 ML VIAL SQ PRN ×3 (12:38→21:52)
[2021-01-06] MEDS: BLOOD SUGAR DIAGNOSTIC 1 EACH STRIP IN SCH ×3 (12:42→21:39)
[2021-01-06] MEDS: MEROPENEM 500 MG in IV NS 0.9% 100 ML IV SCH ×2 (13:10→21:39)
[2021-01-06 16:00] VITALS: BP 125/69
[2021-01-06] MEDS ORDERED: METFORMIN 500 MG TABLET PO SCH (17:00)
--- NOTE | 2021-01-06 18:00 | NUR ---
yaritza in and orders for foot cream.
[2021-01-06] MEDS: glipiZIDE XL 2.5 MG TAB.OSM.24 PO SCH (18:06)
[2021-01-06] MEDS: CLOTRIMAZOLE/BETAMETASONE DIPROPIONATE 15 GM TUBE TP SCH (18:06)
[2021-01-06] MEDS: METFORMIN XR 500 MG TAB.SR.24H PO SCH (18:14)
--- NOTE | 2021-01-06 19:30 | NUR ---
MS RN OPENING NOTE RECEIVED PATIENT IN BED. A/OX4. TOLERATING ROOM AIR. RESPIRATIONS ARE EVEN AND UNLABORED. NO S/S SOB NOTED. NO C/O PAIN AT THIS TIME. IN NO APPARENT DISTRESS. IV ACCESS IN LEFT HAND #22 RUNNING NS@75ML/HR. BED IS LOW AND LOCKED, HOB ELEVATED IN SEMI FOWLERS, SIDE RIALS U PX2, CALL LIGHT WITHIN REACH. WILL CONTINUE TO MONITOR THROUGHOUT SHIFT.
[2021-01-06 20:00] VITALS: BP 122/60
[2021-01-06 20:35] VITALS: BP 122/60
--- NOTE | 2021-01-06 20:40 | NUR ---
MS RN NOTE CALLED NABEEL CAPONE, TO INFORM HIM THAT THERE IS AN ORDER FOR BIPAP CHANGES.
[2021-01-07] MEDS: MEROPENEM 500 MG in IV NS 0.9% 100 ML IV SCH ×3 (04:46→21:32)
[2021-01-07] MEDS: IV NS 0.9% 1,000 ML IV PRN (04:48)
[2021-01-07] MEDS: BLOOD SUGAR DIAGNOSTIC 1 EACH STRIP IN SCH ×4 (06:35→21:32)
[2021-01-07 06:36] LABS: BASOPHILS % (AUTO) 0.5 % (0.0-2.0); EOSINOPHILS % (AUTO) 2.5 % (0.0-6.0); HEMATOCRIT 43 % (33-45); HEMOGLOBIN 14.5 g/dL (11.5-14.8); LYMPHOCYTES # (AUTO) 2.6 /CMM (0.8-4.8); LYMPHOCYTES % (AUTO) 33.7 % (20.0-44.0); MEAN CORPUSCULAR HGB CONC 33 g/dl (31.0-36.0); MEAN CORPUSCULAR VOLUME 93 fL (82-100); MONOCYTES # (AUTO) 0.4 /CMM (0.1-1.30); NEUTROPHILS # (AUTO) 4.6 /CMM (1.8-8.9); NEUTROPHILS % (AUTO) 58.3 % (43.0-81.0); PLATELET COUNT (AUTO) 196 /CMM (150-450); RED BLOOD CELL COUNT(AUTO) 4.68 MIL/uL (4.0-5.2); WHITE BLOOD COUNT (AUTO) 7.8 K/uL (4.3-11.0)
[2021-01-07] MEDS: INSULIN REGULAR, HUMAN 100 UNIT/ML 3 ML VIAL SQ PRN ×4 (06:36→21:48)
--- NOTE | 2021-01-07 06:43 | NUR ---
MS RN CLOSING NOTE PATIENT RESTING IN BED. A/OX4. WAS ON NOC BIPAP UNTIL NOW. NO RESP DISTRESS. NO C/O PAIN THROUGHOUT SHIFT. NO DISTRESS. IV ACCESS MAINTAINED IN LEFT HAND #22 RUNNING NS@75ML/HR. BED REMAINS LOW AND LOCKED, HOB ELEVATED IN SEMI FOWLERS, SIDE RIALS UP X2, CALL LIGHT WITHIN REACH. WILL ENDORSE TO ONCOMING SHIFT
[2021-01-07 07:06] LABS: CALCIUM, SERUM 8.8 mg/dL (8.5-10.1); CREATININE 0.6 mg/dL (0.6-1.3); MAGNESIUM 1.9 mg/dL (1.8-2.4); PHOSPHORUS 4.4 mg/dL (2.5-4.9); POTASSIUM 4.1 mmol/L (3.5-5.1)
[2021-01-07 07:51] VITALS: BP 131/82
[2021-01-07] MEDS: CLOTRIMAZOLE/BETAMETASONE DIPROPIONATE 15 GM TUBE TP SCH ×2 (09:22→16:26)
[2021-01-07] MEDS: LISINOPRIL (5MG) 5 MG TABLET PO SCH (09:22)
[2021-01-07] MEDS: glipiZIDE XL 2.5 MG TAB.OSM.24 PO SCH (09:22)
[2021-01-07 16:00] VITALS: BP 114/87
[2021-01-07] MEDS: METFORMIN XR 500 MG TAB.SR.24H PO SCH (17:26)
--- NOTE | 2021-01-07 20:00 | NUR ---
MS RN OPENING NOTES Patient is awake, A&Ox4. No signs of distress. Denies pain or discomfort. All safety measures in place.
[2021-01-07 20:14] VITALS: BP 119/55
--- NOTE | 2021-01-07 20:30 | NUR ---
DR. LOVE UROLOGIST IN TO SEE THE PATIENT.
[2021-01-07] MEDS: ENOXAPARIN SODIUM 40 MG/0.4 ML DISP.SYRIN SQ SCH (21:35)
--- NOTE | 2021-01-08 01:30 | NUR ---
C diff specimen collected and dropped off to lab with proper documentation.
[2021-01-08] MEDS: MEROPENEM 500 MG in IV NS 0.9% 100 ML IV SCH ×2 (04:50→12:43)
--- NOTE | 2021-01-08 06:30 | NUR ---
MS RN CLOSING NOTE Patient A&Ox4. Slept well throughout the night on BiPap. No signs of distress. Tolerating IV ABX. Continues having diarrhea as possible side effect. C.diff stool specimen was delivered to lab -awaiting result. will endorse. Patient denies pain or discomfort -hopes to be discharged home today.
[2021-01-08] MEDS: BLOOD SUGAR DIAGNOSTIC 1 EACH STRIP IN SCH ×2 (06:53→12:16)
[2021-01-08] MEDS: INSULIN REGULAR, HUMAN 100 UNIT/ML 3 ML VIAL SQ PRN ×2 (06:54→14:05)
--- NOTE | 2021-01-08 07:11 | NUR ---
MS RN NOTES PATIENT IN BED ALERT ORIENTED X 4. NO ACUTE DISTRESS NOTED. BREATHING UNLABORED. DENIED ANY PAIN AT THIS TIME . IV ACCESS PATENT AND INTACT, NO REDNESS, NO SWELLING NOTED. SAFETY MEASURES IN PLACE, CALL LIGHT WITHIN REACH. WILL CONTINUE TO MONITOR ACCORDINGLY.
[2021-01-08 08:00] VITALS: BP 136/86
[2021-01-08 09:01] VITALS: BP 136/86
[2021-01-08] MEDS: LISINOPRIL (5MG) 5 MG TABLET PO SCH (09:01)
[2021-01-08] MEDS: glipiZIDE XL 2.5 MG TAB.OSM.24 PO SCH (09:01)
[2021-01-08] MEDS: CLOTRIMAZOLE/BETAMETASONE DIPROPIONATE 15 GM TUBE TP SCH (09:02)
--- NOTE | 2021-01-08 11:35 | NUR ---
MS RN NOTES PATIENT RESULTED POSITIVE FOR C-DIFF CALLED DR JOSELINE FALL , AWAITING FOR ORDERS.
--- NOTE | 2021-01-08 12:30 | NUR ---
MS RN NOTES SPOKE WITH DR JOSELINE FALL WITH ORDER FOR FLAGYL 500MG PO BID AND SAID THAT HE WILL ORDER SOME TO PATIENT PHARMACY.
--- NOTE | 2021-01-08 12:35 | NUR ---
MS SINGER NOTES PATIENT RESULTED POSITIVE FOR C-DIFF CALLED DR JOSELINE FALL , AWAITING FOR ORDERS. Addendum: 01/08/21 at 1242 by ARIANE PEREZ RN DISREGARD ABOVE NOTE WRONG ENTRY
--- NOTE | 2021-01-08 12:53 | NUR ---
MS RN NOTES CLARIFIED STOP DATE FOR FLAGYL WITH DR FALL SAID FOR 14 DAYS
[2021-01-08] MEDS ORDERED: METRONIDAZOLE 500 MG TABLET PO SCH (13:00)
[2021-01-08] MEDS ORDERED: VANCOMYCIN HCL 125 MG/2.5 ML ORAL.SUSP PO SCH (13:03)
--- NOTE | 2021-01-08 13:16 | NUR ---
MS RN NOTES LEFT UPPER ARM MIDLINE G 18 PLACED ON BY MIDLINE NURSE BRENDA, SECURED WITH TRANSPARENT DRESSING SIGNED AND DATED, NO REDNESS, NO SWELLING, NO BLEEDING NOTED. PATIENT TOLERATED WELL. PER BRENDA ADAN OK FOR USE.
--- NOTE | 2021-01-08 13:28 | NUR ---
MS RN NOTES SPOKE WITH [facility] AT PHARMACY REGARDING ORAL VANCOMYCIN NOT IN [place], WILL ADMINISTER ONCE AVAILABLE.
--- NOTE | 2021-01-08 17:15 | NUR ---
MS AUDIT MGR NOTES PATIENT DISCHARGE HOME WITH HOME HEALTH WITH STABLE VITAL SIGNS. NO ACUTE DISTRESS NOTED.BREATHING UNLABORED. NO SOB NOTED. DENIED PAIN AT THIS TIME. DISCHARGE INSTRUCTIONS GIVEN TO THE PATIENT INCLUDING FOLLOW UP WITH PRIMARY DOCTOR IN 1 WEEK ,IV ANTIBIOTIC WITH HOME HEALTH AND NEW PRESCRIPTION FOR PO ANTIBIOTIC TO BE SEND BY MD TO PATIENT PHARMACY AND INFECTION CONTROL, VERBALIZED UNDERSTANDING. LEFT UPPER ARM MIDLINE PATENT AND INTACT WITH TRANSPARENT DRESSING DATED AND SIGNED, LEFT HAND IV ACCESS REMOVED, NO REDNESS, NO SWELLING, NO BLEEDING NOTED. ALL BELONGINGS ACCOUNTED FOR. ASSISTED TO THE LOBBY, PICKED UP VIA PRIVATE CAR ACCOMPANIED BY DAUGHTER GREGORIO IN STABLE CONDITION.
== END 2021-01-08 17:15 | disposition home health service (06) | DRG 872 ==
LOC: ER 19:21 → MED 23:10
PROVIDERS: ADMIT Nurse Practitioner Acute Care; ATTEND Legal Medicine
PROC: 05H633Z Insertion of Infusion Device into Left Subclavian Vein, Percutaneous Approach (ICD-10-PCS; principal; 2021-01-08)
PROC: B547ZZA Ultrasonography of Left Subclavian Vein, Guidance (ICD-10-PCS; 2021-01-08)
DX: A41.9 Sepsis, unspecified organism (principal); N13.6 Pyonephrosis; D68.59 Other primary thrombophilia; Z16.12 Extended spectrum beta lactamase (ESBL) resistance; E66.2 Morbid (severe) obesity with alveolar hypoventilation; E44.1 Mild protein-calorie malnutrition; Z68.43 Body mass index [BMI] 50.0-59.9, adult; E11.65 Type 2 diabetes mellitus with hyperglycemia; I10 Essential (primary) hypertension; Z20.822 Contact with and (suspected) exposure to COVID-19; B35.3 Tinea pedis; B96.20 Unspecified Escherichia coli [E. coli] as the cause of diseases classified elsewhere; M20.41 Other hammer toe(s) (acquired), right foot; M20.42 Other hammer toe(s) (acquired), left foot; Z87.891 Personal history of nicotine dependence; Z87.442 Personal history of urinary calculi; G89.4 Chronic pain syndrome; E88.09 Other disorders of plasma-protein metabolism, not elsewhere classified; E11.40 Type 2 diabetes mellitus with diabetic neuropathy, unspecified; J44.9 Chronic obstructive pulmonary disease, unspecified; R16.2 Hepatomegaly with splenomegaly, not elsewhere classified; B96.89 Other specified bacterial agents as the cause of diseases classified elsewhere; Z79.84 Long term (current) use of oral hypoglycemic drugs
CPT/HCPCS: 36410; 36415; 80048-TC; 80061-TC; 80076-TC; 81001; 82962-TC; 83735-TC; 84100-TC; 84703-TC; 85025-TC; 87040-TC; 87081-TC; 87086-TC; 87186-TC; C9803; G0378; J0696; J1650; J1815; J2185; J7030

== ENCOUNTER 2021-12-08 16:33 | Inpatient (IN) | payer MEDICARE, OTHER ==
[~2021-12-08] VITALS: Ht 170.2 cm; Wt 143.8 kg
[~2021-12-08 16:33] MED LIST changes: +ALBU18HF2 INH; +GLIP2.5T3 PO; -METF500T PO; +METF750T46 PO; -SULF1TAB48 PO
--- NOTE | 2021-12-08 16:55 | NUR ---
PT BIBRA C/O ABDOMINAL PAIN RADIATING TO HER BACK STARTED THIS MORNING. C/O PAIN 05/31.
[2021-12-08 17:20] LABS: BASOPHILS # (AUTO) 0.1 K/uL (0.0-0.2); BASOPHILS % (AUTO) 0.5 % (0.0-2.0); EOSINOPHILS % (AUTO) 0.5 % (0.0-6.0); HEMATOCRIT 48 % (33-45); HEMOGLOBIN 16.2 g/dL (11.5-14.8); LYMPHOCYTES # (AUTO) 1.5 K/uL (0.8-4.8); LYMPHOCYTES % (AUTO) 12.2 % (20.0-44.0); MEAN CORPUSCULAR HGB CONC 33 g/dl (31.0-36.0); MEAN CORPUSCULAR VOLUME 91 fL (82-100); MONOCYTES # (AUTO) 0.4 K/uL (0.1-1.30); MONOCYTES % (AUTO) 3.5 % (2.0-12.0); NEUTROPHILS # (AUTO) 10.3 K/uL (1.8-8.9); NEUTROPHILS % (AUTO) 83.3 % (43.0-81.0); PLATELET COUNT (AUTO) 188 K/uL (150-450); RED BLOOD CELL COUNT(AUTO) 5.34 MIL/uL (4.0-5.2); WHITE BLOOD COUNT (AUTO) 12.3 K/uL (4.3-11.0)
[2021-12-08] MEDS ORDERED: ONDANSETRON HCL/PF 4 MG/2 ML VIAL ONE (17:23)
[2021-12-08] MEDS ORDERED: HYDROMORPHONE INJ 2 MG/ML DISP.SYRIN ONE (17:23)
[2021-12-08] MEDS ORDERED: KETOROLAC TROMETHAMINE INJ 30 MG/ML VIAL ONE (17:23)
[2021-12-08] MEDS ORDERED: ONDANSETRON HCL/PF 4 MG/2 ML VIAL IVP ONE (17:30)
[2021-12-08] MEDS ORDERED: HYDROMORPHONE INJ 2 MG/ML DISP.SYRIN IV ONE (17:30)
[2021-12-08] MEDS ORDERED: IV NS 0.9% 1,000 ML BAG IV ONE (17:30)
[2021-12-08] MEDS ORDERED: KETOROLAC TROMETHAMINE INJ 30 MG/ML VIAL IV ONE (17:30)
[2021-12-08 17:46] LABS: CREATININE 0.6 mg/dL (0.6-1.3); POTASSIUM 4.1 mmol/L (3.5-5.1)
[2021-12-08 17:53] LABS: ALBUMIN 3.3 g/dL (3.4-5.0); BILIRUBIN,DIRECT 0.1 mg/dL (0.0-0.2); BILIRUBIN,TOTAL 0.4 mg/dL (0.2-1.0); TOTAL PROTEIN, SERUM 7.6 g/dL (6.4-8.2)
--- NOTE | 2021-12-08 18:11 | NUR ---
PAGED [facility], DR. ROLANDO RAPP ON-CALL. AWAITING FOR CALL BACK.
--- NOTE | 2021-12-08 18:20 | NUR ---
[facility], DR. LOWRY ON-CALL. TRANSFERRED CALL TO DR. KLEIN.
[2021-12-08] MEDS ORDERED: NITR100C11 PO (18:25)
[2021-12-08] MEDS ORDERED: METF-440 PO (18:25)
[2021-12-08] MEDS ORDERED: ATOR10TA PO (18:25)
[2021-12-08] MEDS ORDERED: INSULIN REGULAR, HUMAN 100 UNIT/ML 3 ML VIAL SQ PRN (19:30)
[2021-12-08] MEDS ORDERED: Z GUARD REMEDY 4 OZ OINT TP PRN (19:30)
[2021-12-08] MEDS ORDERED: MAGNESIUM HYDROXIDE 30 ML UDC PO PRN (19:30)
[2021-12-08] MEDS ORDERED: ONDANSETRON HCL/PF 4 MG/2 ML VIAL IVP PRN (19:30)
[2021-12-08] MEDS ORDERED: LABETALOL 20 MG/4 ML VIAL IV PRN (19:30)
[2021-12-08] MEDS ORDERED: DEXTROSE 50%-WATER 50 ML DISP.SYRIN IV PRN (19:30)
[2021-12-08] MEDS ORDERED: *INSULIN REGULAR(HUMULIN R)HUM 100 UNIT/ML VIAL SQ PRN (19:30)
[2021-12-08 19:59] LABS: BILIRUBIN,URINE SMALL (NEGATIVE); COLOR,URINE DARK YELLOW (YELLOW); LEUKOCYTE ESTERASE ,URINE SMALL (NEGATIVE); NITRITE, URINE POSITIVE (NEGATIVE); PROTEIN,URINE 100 mg/dl (NEGATIVE); UGLUCOSE NEGATIVE (NEGATIVE); UROBILINOGEN,URINE 0.2 EU/dL (0.2)
[2021-12-08 20:00] VITALS: BP 122/60
[2021-12-08 20:10] LABS: BACTERIA,URINE Many /HPF (None Seen); WBC,URINE 51-80 /HPF (0-3)
[2021-12-08 20:11] LABS: SQUAMOUS EPITHELIAL CELL,UR Moderate /HPF (None Seen)
--- NOTE | 2021-12-08 20:17 | NUR ---
PT RESTING COMFORTABLY IN BED, PROVIDED WARM BLANKETS. WILL CONTINUE TO MONITOR.
--- NOTE | 2021-12-08 20:37 | NUR ---
REPORT GIVEN TO LINDSAY SINGER FOR MARCK
[2021-12-08 21:00] VITALS: BP 122/60
[2021-12-08] MEDS ORDERED: ALBUTEROL FS 2.5 MG/3 ML VIAL.NEB NEB PRN (21:00)
--- NOTE | 2021-12-08 21:00 | NUR ---
MS RN NOTE SKIN INTACT, HERNIA NOTED ON ABDOMEN; AWARE; PER PT, HAS HAD HERNIA FOR A WHILE; DR. KELLER FOLLOWING, AWAITING FOR DR. LOWRY CONSULTATION
--- NOTE | 2021-12-08 21:00 | NUR ---
MS ALLIANCES CONSULTANT NOTES PT ARRIVED ON UNIT VIA STRETCHER, ACCOMPANIED BY ER STAFF; PT A/OX4, BREATHING EVEN AND SLIGHTLY LABORED WITH EXERTION; PT ON OXYGEN VIA NC @ 4LPM; PT DENIES PAIN AT THIS TIME, PT VERBALIZED PAIN MED ADMINISTERED IN ER HELPED HER "TREMENDOUSLY"; PT AMBULATORY WITH STEADY GAIT; PT HAS L HAND #20 INTACT AND PATENT, TOLERATING IVF WELL; PT MED HX OBTAINED; BELONGINGS CHECKED; PT ORIENTED TO STAFF AND TO UNIT; SAFETY PRECAUTIONS IMPLEMENTED; BED LOCKED IN LOW POSITION; SIDE RAILSX2; CALL LIGHT WITHIN REACH; WILL RENDER MD ORDERS
[2021-12-08] MEDS: BLOOD SUGAR DIAGNOSTIC 1 EACH STRIP VI SCH (21:11)
[2021-12-08] MEDS: HEPARIN SODIUM, PORCINE 5000 UNITS/1 ML VIAL SQ SCH (21:12)
--- NOTE | 2021-12-08 22:23 | NUR ---
RN NOTES PT REPORTED TO HAVE SLEEP APNEA AND REQUESTING IF POSSIBLE TO HAVE CPAP FOR HER TONIGHT; MADE AWARE; PER MD OKAY FOR RT TO SET UP CPAP MACHINE FOR PT; CHARGE AWARE
--- NOTE | 2021-12-08 22:31 | NUR ---
MS RN NOTES RT MADE AWARE OF MD ORDER
--- NOTE | 2021-12-08 23:30 | NUR ---
MS RN NOTES MD AT BEDSIDE; SPOKE WITH PT REGARDING PLAN OF CARE; PT VERBALIZED UNDERSTANDING; ASKED IF OKAY FOR ICE CHIPS, PER MD, OK. RT ALSO AT BEDSIDE PREPPING CPAP MACHINE FOR PT; WILL CONT TO MONITOR
[2021-12-09] MEDS ORDERED: CEFTRIAXONE 1 G VIAL IM SCH (00:30)
--- NOTE | 2021-12-09 00:58 | NUR ---
MS RN NOTES PT IV SITE NOT FLUSHING WELL; NEW IV SITE R HAND # 20 ESTABLISHED; TOLERATING IVF WELL, WILL CONT TO MONITOR;
[2021-12-09] MEDS ORDERED: CEFTRIAXONE 1 G in IV D5W 50 ML IV SCH (01:00)
[2021-12-09] MEDS ORDERED: CEFTRIAXONE 1 G VIAL ONE (01:32)
[2021-12-09] MEDS: CEFTRIAXONE 1 G in IV D5W 50 ML IV SCH ×2 (01:36→09:47)
[2021-12-09] MEDS: BLOOD SUGAR DIAGNOSTIC 1 EACH STRIP VI SCH (06:41)
--- NOTE | 2021-12-09 06:50 | NUR ---
MS MIXOLOGIST NOTES PT SLEEPING IN BED COMFORTABLY, WITH CPAP MACHINE CONNECTED; PT A/OX4, BREATHING EVEN AND AND UNLABORED; PT HAS PRN OXYGEN VIA NC @ 4LPM IF NEEDED; PT DENIES PAIN AT THIS TIME, ; PT AMBULATORY WITH STEADY GAIT; PT HAS RIGHT #20 INTACT AND PATENT, TOLERATING IVF WELL; ALL NEEDS RENDERED; SAFETY PRECAUTIONS IMPLEMENTED; BED LOCKED IN LOW POSITION; SIDE RAILSX2; CALL LIGHT WITHIN REACH; WILL ENDORSE CONTINUITY OF CARE TO ONCOMING SHIFT;
[2021-12-09 07:16] LABS: ALBUMIN 2.7 g/dL (3.4-5.0); BILIRUBIN,TOTAL 0.4 mg/dL (0.2-1.0); MAGNESIUM 2.4 mg/dL (1.8-2.4); PHOSPHORUS 4.2 mg/dL (2.5-4.9); POTASSIUM 4.4 mmol/L (3.5-5.1); TOTAL PROTEIN, SERUM 6.5 g/dL (6.4-8.2)
--- NOTE | 2021-12-09 07:30 | NUR ---
MS RN NOTES RECEIVED PATIENT AWAKE IN BED. PATIENT IS ALERT AND ORIENTED TIMES 4, MAKING NEEDS KNOWN IN NEPALI LANGUAGE. PATIENT REMOVED CPAP, SHE STATED WANTS TO USE RESTROOM AND FOR MORNING CARE. SHE IS ALSO ON O2 VIA NASAL CANNULA AT 4 L/MIN. PATIENT IS AMBULATORY, SHE IS USING RESTROOM . IV ACCESS ON THE RIGHT HAND # 20 INTACT. NS RUNNING AT 75 ML/HR. BED LOCKED IN THE LOWEST POSITION. CALL LIGHT AND TABLE IN REACH. WILL CONTINUE TO MONITOR THE PATIENT.
[2021-12-09 07:44] LABS: CALCIUM, SERUM 8.3 mg/dL (8.5-10.1); CREATININE 0.6 mg/dL (0.6-1.3)
[2021-12-09 07:50] LABS: BASOPHILS % (AUTO) 0.2 % (0.0-2.0); EOSINOPHILS % (AUTO) 1.1 % (0.0-6.0); HEMATOCRIT 43 % (33-45); HEMOGLOBIN 14.3 g/dL (11.5-14.8); LYMPHOCYTES # (AUTO) 1.8 K/uL (0.8-4.8); LYMPHOCYTES % (AUTO) 27.3 % (20.0-44.0); MEAN CORPUSCULAR HGB CONC 33 g/dl (31.0-36.0); MEAN CORPUSCULAR VOLUME 92 fL (82-100); MONOCYTES # (AUTO) 0.4 K/uL (0.1-1.30); MONOCYTES % (AUTO) 6.7 % (2.0-12.0); NEUTROPHILS # (AUTO) 4.2 K/uL (1.8-8.9); NEUTROPHILS % (AUTO) 64.7 % (43.0-81.0); PLATELET COUNT (AUTO) 185 K/uL (150-450); RED BLOOD CELL COUNT(AUTO) 4.73 MIL/uL (4.0-5.2); WHITE BLOOD COUNT (AUTO) 6.6 K/uL (4.3-11.0)
[2021-12-09 08:00] VITALS: BP 115/41
[2021-12-09] MEDS: ATORVASTATIN 10 MG TABLET PO SCH (08:43)
[2021-12-09] MEDS: LISINOPRIL (10MG) 10 MG TABLET PO SCH (08:44)
[2021-12-09] MEDS: HEPARIN SODIUM, PORCINE 5000 UNITS/1 ML VIAL SQ SCH ×2 (08:45→20:46)
[2021-12-09] MEDS: MORPHINE SULFATE INJ 2 MG/ML DISP.SYRIN IV PRN ×2 (08:58→15:56)
[2021-12-09] MEDS ORDERED: DEXTROSE 50%-WATER 50 ML DISP.SYRIN IV PRN (11:00)
[2021-12-09] MEDS: MAG HYDROX/AL HYDROX/SIMETH 30 ML UDC PO PRN (12:03)
[2021-12-09] MEDS: ACETAMINOPHEN 325 MG TABLET PO PRN (12:15)
[2021-12-09] MEDS: BLOOD SUGAR DIAGNOSTIC 1 EACH STRIP IN SCH ×3 (12:36→23:09)
[2021-12-09 16:00] VITALS: BP 107/69
--- NOTE | 2021-12-09 18:33 | NUR ---
RN NOTES HELD INSULIN FOR 1200 , [id number] PATIENT IS NPO HELD INSULIN FOR 1700, CR=[id number] PATIENT IS NPO
--- NOTE | 2021-12-09 19:33 | NUR ---
MS RN CLOSING NOTES PATIENT AWAKE IN BED. PATIENT IS ALERT AND ORIENTED TIMES 4, MAKING NEEDS KNOWN IN AMHARIC LANGUAGE. PATIENT IS ON O2 INHALATION VIA NASAL CANNULA AT 4 L/MIN. NO SOB NOTED. NO DISTRESS NOTED.PATIENT IS AMBULATORY, SHE IS USING RESTROOM . NPO. IV ACCESS ON THE RIGHT HAND # 20 INTACT. NS RUNNING AT 75 ML/HR. ALL DUE MEDS GIVEN ORDERED. BED LOCKED IN THE LOWEST POSITION. CALL LIGHT AND TABLE IN REACH. WILL ENDORSE FOR MARCK.
--- NOTE | 2021-12-09 19:34 | NUR ---
RN OPENING NOTES RECEIVED PT IN BED, AWAKE. AOx4, ABLE TO MAKE NEEDS KNOWN. ON NC 4LPM AND TOLERATING WELL. NO SOB NOTED. NO S/SX OF RESPIRATORY DISTRESS NOTED. IV ACCESS IN R HAND #20 RUNNING NS @ 75 ML/HR. SAFETY PRECAUTIONS IN PLACE: BED IN LOWEST, LOCKED POSITION, SIDERAILS UPx2, AND BRAKES ON. TABLE AND CALL LIGHT WITHIN REACH. WILL CONTINUE TO MONITOR.
[2021-12-09 20:00] VITALS: BP 110/56
--- NOTE | 2021-12-09 20:37 | NUR ---
DR. FALL CALLED AND SAID PATIENT CAN BE CLEAR LIQUIDS UNTIL MIDNIGHT. THEN PLACE PATIENT NPO AGAIN.
[2021-12-09] MEDS: IV NS 0.9% 1,000 ML IV PRN (23:02)
[2021-12-09] MEDS: INSULIN REGULAR, HUMAN 100 UNIT/ML 3 ML VIAL SQ PRN (23:11)
--- NOTE | 2021-12-10 05:36 | NUR ---
RT PT PLACED ON BIPAP AT 2300 ON ORDERED SETTINGS. ALARMS ARE ON AND AUDIBLE. PT ADVISED SHE IS COMFORTABLE AND PROCEEDED TO SLEEP. MEPILEX FOAM IN PLACE SKIN BARRIER. MONITORED Q2, NO SOB OR RESPIRATORY DISTRESS NOTED THROUGHOUT SHIFT.
[2021-12-10 06:12] LABS: BASOPHILS % (AUTO) 0.2 % (0.0-2.0); EOSINOPHILS % (AUTO) 1.7 % (0.0-6.0); HEMATOCRIT 42 % (33-45); LYMPHOCYTES # (AUTO) 1.9 K/uL (0.8-4.8); LYMPHOCYTES % (AUTO) 28.8 % (20.0-44.0); MEAN CORPUSCULAR HGB CONC 34 g/dl (31.0-36.0); MEAN CORPUSCULAR VOLUME 91 fL (82-100); MONOCYTES # (AUTO) 0.4 K/uL (0.1-1.30); MONOCYTES % (AUTO) 5.6 % (2.0-12.0); NEUTROPHILS # (AUTO) 4.1 K/uL (1.8-8.9); NEUTROPHILS % (AUTO) 63.7 % (43.0-81.0); PLATELET COUNT (AUTO) 171 K/uL (150-450); RED BLOOD CELL COUNT(AUTO) 4.58 MIL/uL (4.0-5.2); WHITE BLOOD COUNT (AUTO) 6.5 K/uL (4.3-11.0)
[2021-12-10] MEDS: ACETAMINOPHEN 325 MG TABLET PO PRN ×3 (06:12→21:04)
[2021-12-10 06:17] LABS: CALCIUM, SERUM 8.3 mg/dL (8.5-10.1); CREATININE 0.6 mg/dL (0.6-1.3); MAGNESIUM 1.9 mg/dL (1.8-2.4); POTASSIUM 4.1 mmol/L (3.5-5.1)
[2021-12-10] MEDS: BLOOD SUGAR DIAGNOSTIC 1 EACH STRIP IN SCH ×4 (06:19→23:20)
[2021-12-10] MEDS: INSULIN REGULAR, HUMAN 100 UNIT/ML 3 ML VIAL SQ PRN ×2 (06:24→23:22)
--- NOTE | 2021-12-10 07:02 | NUR ---
RN CLOSING NOTES PT IN BED, ASLEEP, AWAKENS TO VERBAL STIMULI. AOx4, ABLE TO MAKE NEEDS KNOWN. ON CPAP AND TOLERATING WELL. NO SOB NOTED. NO S/SX OF RESPIRATORY DISTRESS NOTED. IV ACCESS IN R HAND #20 RUNNING NS @ 75 ML/HR. ALL NEEDS MET. PT KEPT CLEAN AND DRY. SAFETY PRECAUTIONS IN PLACE: BED IN LOWEST, LOCKED POSITION, SIDERAILS UPx2, AND BRAKES ON. TABLE AND CALL LIGHT WITHIN REACH. WILL ENDORSE TO ONCOMING SHIFT FOR MARCK.
--- NOTE | 2021-12-10 07:37 | NUR ---
MS RN OPENING NOTES RECEIVED PATIENT AWAKE IN BED. PATIENT IS ALERT AND ORIENTED TIMES 4, MAKING NEEDS KNOWN IN FAROESE LANGUAGE. PATIENT REMOVED CPAP, SHE STATED WANTS TO USE RESTROOM AND FOR MORNING CARE. INSTEAD SHE IS USING O2 VIA NASAL CANNULA AT 4 L/MIN. PATIENT IS AMBULATORY, SHE IS USING RESTROOM . IV ACCESS ON THE RIGHT HAND # 20 INTACT. NS RUNNING AT 75 ML/HR. BED LOCKED IN THE LOWEST POSITION. CALL LIGHT AND TABLE IN REACH. WILL CONTINUE TO MONITOR THE PATIENT.
[2021-12-10] MEDS ORDERED: DIATR MEGLU/DIATRIZOATE SODIUM 120 ML BOTTLE (GASTROGRAPHIN) ONE (09:35)
[2021-12-10] MEDS: MORPHINE SULFATE INJ 2 MG/ML DISP.SYRIN IV PRN ×2 (11:38→17:58)
[2021-12-10] MEDS: CEFTRIAXONE 1 G in IV D5W 50 ML IV SCH (11:42)
[2021-12-10] MEDS: ATORVASTATIN 10 MG TABLET PO SCH (11:56)
[2021-12-10] MEDS: LISINOPRIL (10MG) 10 MG TABLET PO SCH (11:56)
[2021-12-10] MEDS: HEPARIN SODIUM, PORCINE 5000 UNITS/1 ML VIAL SQ SCH ×2 (11:57→21:07)
--- NOTE | 2021-12-10 19:12 | NUR ---
MS RN CLOSING NOTES PATIENT AWAKE IN BED. PATIENT IS ALERT AND ORIENTED TIMES 4, MAKING NEEDS KNOWN IN ROMANSH LANGUAGE. SHE IS ON O2 VIA NASAL CANNULA AT 4 L/MIN. PATIENT IS AMBULATORY, SHE IS USING RESTROOM . IV ACCESS ON THE RIGHT HAND # 20 INTACT. NS RUNNING AT 75 ML/HR. ALL DUE MEDS GIVEN ORDERED. PATIENT NPO SINCE SHE IS HAVING BOWEL THROUGH TEST. PATIENT HAD SMALL BOWEL MOVEMENTS.BED LOCKED IN THE LOWEST POSITION. CALL LIGHT AND TABLE IN REACH. WILL ENDORSE FOR MARCK..
--- NOTE | 2021-12-10 19:20 | NUR ---
RN opening notes Received Pt from morning nurse. Pt is sitting in bed accompanied by Pt's daughter. Pt is alert and orientedX4. On 4 L NC. No SOB. No S/S of distress noted. NPO status. IV site R hand# 20 is clean, intact and infuising wrell NS@ 75 ml/hr. Safety precautions is maintained. bed at low position, brakes locked, side rails upX2, hob elevated and call light is within reach. Will continue to monitor.
[2021-12-10 20:00] VITALS: BP 97/63
[2021-12-10] MEDS: IV NS 0.9% 1,000 ML IV PRN (20:39)
[2021-12-10 21:30] VITALS: BP 106/61
--- NOTE | 2021-12-10 23:22 | NUR ---
RN notes Pt's blood sugar 165. Held regular insulin because Pt's NPO status.
[2021-12-11] MEDS: BLOOD SUGAR DIAGNOSTIC 1 EACH STRIP IN SCH ×4 (05:15→23:55)
[2021-12-11] MEDS: INSULIN REGULAR, HUMAN 100 UNIT/ML 3 ML VIAL SQ PRN ×3 (05:15→23:58)
--- NOTE | 2021-12-11 06:56 | NUR ---
RN closing notes Pt is resting in bed comfortably. Pt is alert and orientedX4. Pt still using Cpap machine. No SOB. No S/S of distress noted. Routine meds were given as ordered. IV site R hand# 20 is clean, intact and infuising well NS@ 75 ml/hr. Kept Pt clean, dry and comfortable. All needs met and attended. Safety precautions is maintained. bed at low position, brakes locked, side rails upX2, hob elevated and call light is within reach. Will endorse to am nurse for MARCK.
--- NOTE | 2021-12-11 07:30 | NUR ---
MS RN OPENING NOTES RECEIVED PATIENT ON BED AWAKE AND AO X4. ON O2 AT 4LPM VIA NASAL CANNULA TOLERATING WELL. NO SOB NOTED. NOT IN DISTRESS. WITH NO COMPLAINTS OF PAIN OR DISCOMFORT AT THIS TIME. WITH IV ACCESS AT RIGHT HAND G20 WITH IVF NS AT 75ML/HR INFUSING WELL. SAFETY MEASURES IN PLACED. CALL LIGHT WITHIN REACH. SIDE RAILS UP X2. WILL CONTINUE TO MONITOR.
[2021-12-11 08:24] VITALS: BP 108/68
[2021-12-11] MEDS: CEFTRIAXONE 1 G in IV D5W 50 ML IV SCH (08:54)
[2021-12-11] MEDS: ATORVASTATIN 10 MG TABLET PO SCH (08:55)
[2021-12-11] MEDS: HEPARIN SODIUM, PORCINE 5000 UNITS/1 ML VIAL SQ SCH ×2 (08:56→21:29)
[2021-12-11] MEDS: LISINOPRIL (10MG) 10 MG TABLET PO SCH (09:00)
[2021-12-11 16:36] VITALS: BP 95/74
[2021-12-11] MEDS: MAG HYDROX/AL HYDROX/SIMETH 30 ML UDC PO PRN (16:40)
--- NOTE | 2021-12-11 19:29 | NUR ---
MS RN CLOSING NOTES PATIENT ON BED AWAKE AND A/O X4. ON O2 AT 4LPM VIA NASAL CANNULA TOLERATING WELL. NO SOB NOTED. NOT IN DISTRESS. WITH NO COMPLAINTS OF PAIN OR DISCOMFORT AT THIS TIME. WITH IV ACCESS AT LEFT FOREARM G20 WITH IVF NS AT 75ML/HR INFUSING WELL. DUE MEDS GIVEN. SAFETY MEASURES IN PLACED. CALL LIGHT WITHIN REACH. SIDE RAILS UP X2. WILL ENDORSE TO NEXT SHIFT FOR MARCK.
--- NOTE | 2021-12-11 19:30 | NUR ---
RN OPENING NOTE PATIENT IN BED, AWAKE. PATIENT IS ABLE TO MAKE NEEDS KNOWN, A/O X 4. PATIENT IS ON 4LPM VIA NC, SATTING AT 96% O2 SAT. BREATHING EVEN AND UNLABORED. PATIENT IS COMPLAINING OF ABDOMINAL BLOATING AND COMPLAINING OF ABD PAIN. PATIENT REFUSES ANY MEDICATION AT THIS TIME. PATIENT HAS A FA 20 G, PATENT AND INTACT. CPAP MACHINE AT BEDSIDE. SAFETY MEASURES I PLACE: BED LOCKED AND IN LOWEST POSITION, CALL LIGHT WITHIN REACH, SIDE RAILS UP. WILL MONITOR PATIENT CLOSELY.
[2021-12-11 20:22] VITALS: BP 107/65
[2021-12-11] MEDS: IV NS 0.9% 1,000 ML IV PRN (23:55)
[2021-12-12] MEDS: BLOOD SUGAR DIAGNOSTIC 1 EACH STRIP IN SCH ×4 (05:50→23:00)
[2021-12-12] MEDS: INSULIN REGULAR, HUMAN 100 UNIT/ML 3 ML VIAL SQ PRN ×4 (05:52→23:06)
--- NOTE | 2021-12-12 07:49 | NUR ---
RN MS NOTES PT AWAKE, AMBULATES WITH ASSIST TO THE BATHROOM, NO COMPLAINT OF PAIN, NOT IN DISTRESS, ON O2 AT 4LPM VIA N/C, NO SOB, CALL LIGHT WITHIN REACH.
[2021-12-12 08:00] VITALS: BP 98/50
--- NOTE | 2021-12-12 08:02 | NUR ---
RT Received pt on 2LPM nasal cannula. HR 78, SPO2 98%.
[2021-12-12] MEDS: CEFTRIAXONE 1 G in IV D5W 50 ML IV SCH (08:40)
[2021-12-12] MEDS: ATORVASTATIN 10 MG TABLET PO SCH (08:41)
[2021-12-12] MEDS: LISINOPRIL (10MG) 10 MG TABLET PO SCH (08:54)
[2021-12-12] MEDS: HEPARIN SODIUM, PORCINE 5000 UNITS/1 ML VIAL SQ SCH ×2 (08:54→21:39)
[2021-12-12 16:00] VITALS: BP 122/60
[2021-12-12] MEDS: ACETAMINOPHEN 325 MG TABLET PO PRN (18:26)
--- NOTE | 2021-12-12 18:35 | NUR ---
RN MS NOTES PT IN BED, AWAKE, ALERT AND ORIENTED, ADVANCED DIET TO SOFT PER ORDER OF DR. FALL, TOLERATES CURRENT DIET WITH SOME ABDOMINAL PAIN, TYLENOL GIVEN ORDERED, ABLE TO TRANSFER TO BEDSIDE COMMODE, SEEN BY DR. VIDAL, PLAN OF CARE DISCUSSED WITH PT, CALL LIGHT WITHIN EASY REACH, NEEDS ATTENDED.
--- NOTE | 2021-12-12 19:25 | NUR ---
MS RN OPENING NOTES RECEIVED PATIENT LAYING AWAKE IN BED. A/O X4. PATIENT WITH REGULAR AND UNLABORED BREATHING 2 LPM VIA NASAL CANULA TOLERATED WELL. NO SIGNS AND SYMPTOMS OF DISTRESS NOTED. NO COMPLAINS OF PAIN OR DISCOMFORT NOTED AT THIS TIME. IV ACCESS RFA G #22 INFUSING NS @ 75 ML/HR. IV ACCESS PATENT AND INTACT. SAFETY PRECAUTIONS ENFORCED WITH BED LOCKED AND AT LOWEST POSITION. SIDERAILS UP X2. CALL LIGHT WITHIN REACH AT ALL TIMES. WILL CONTINUE TO MONITOR PATIENT.
[2021-12-12 20:00] VITALS: BP 95/56
[2021-12-12] MEDS: MAG HYDROX/AL HYDROX/SIMETH 30 ML UDC PO PRN (23:13)
[2021-12-13] MEDS: BLOOD SUGAR DIAGNOSTIC 1 EACH STRIP IN SCH ×4 (06:21→23:21)
[2021-12-13] MEDS: INSULIN REGULAR, HUMAN 100 UNIT/ML 3 ML VIAL SQ PRN ×4 (06:24→23:23)
--- NOTE | 2021-12-13 06:43 | NUR ---
MS RN CLOSING NOTES PATIENT STILL LAYING AWAKE IN BED. A/O X4. PATIENT WITH REGULAR AND UNLABORED BREATHING 2 LPM VIA NASAL CANULA TOLERATED WELL. NO SIGNS AND SYMPTOMS OF DISTRESS NOTED. NO COMPLAINS OF PAIN OR DISCOMFORT NOTED AT THIS TIME. IV ACCESS RFA G #22 INFUSING NS @ 75 ML/HR. IV ACCESS PATENT AND INTACT. SAFETY PRECAUTIONS ENFORCED WITH BED LOCKED AND AT LOWEST POSITION. SIDERAILS UP X2. CALL LIGHT WITHIN REACH AT ALL TIMES. WILL ENDORSE CONTINUITY OF CARE TO DAY SHIFT NURSE.
--- NOTE | 2021-12-13 07:44 | NUR ---
MS RN OPENING NOTE RECEIVED PATIENT AWAKE IN BED. A/O X4. NO S/SX OF ACUTE DISTRESS NOTED. NO C/O PAIN AT THIS TIME. BREATHING IS EVEN AND UNLABORED; ON ROOM AIR, TOLERATING WELL. IV ACCESS RFA#22 PATENT AND INTACT WITH NS 0.9% RUNNING AT 75MLS/HR. PT NPO EXCEPT MEDS AT THIS TIME. SAFETY MEASURES IN PLACE WITH BED LOCKED AT LOW POSITION; SIDE RAILS UP X2; CALL LIGHT WITHIN EASY REACH. WILL CONTINUE TO MONITOR PATIENT THROUGHOUT SHIFT.
[2021-12-13 08:00] VITALS: BP 104/44
[2021-12-13] MEDS: ATORVASTATIN 10 MG TABLET PO SCH (08:40)
[2021-12-13] MEDS: HEPARIN SODIUM, PORCINE 5000 UNITS/1 ML VIAL SQ SCH ×2 (08:40→20:57)
[2021-12-13] MEDS: LISINOPRIL (10MG) 10 MG TABLET PO SCH (08:40)
[2021-12-13] MEDS: CEFTRIAXONE 1 G in IV D5W 50 ML IV SCH (09:13)
[2021-12-13] MEDS: IV NS 0.9% 1,000 ML IV PRN (09:20)
[2021-12-13] MEDS ORDERED: CIPR-262 PO (09:20)
[2021-12-13] MEDS ORDERED: METR500T PO (09:20)
[2021-12-13] MEDS: ACETAMINOPHEN 325 MG TABLET PO PRN (09:29)
--- NOTE | 2021-12-13 13:06 | NUR ---
RN NOTE PT C/O NAUSEA AND PAIN. I ADMINISTERED ZOFRAN 4MG IV PRN FOR NAUSEA. LOW BP NOTED-83/46 HR [address]. VIDAL, AWAITING NEW ORDERS.
--- NOTE | 2021-12-13 13:27 | NUR ---
RN NOTE NEW ORDERS RECEIVED FROM DR. VIDAL FOR 1L NS BOLUS AND STAT CBC AND BMP; ORDERS READ BACK AND CARRIED OUT.
[2021-12-13] MEDS ORDERED: IV NS 0.9% 1,000 ML IV ONE (13:30)
[2021-12-13 14:31] LABS: CALCIUM, SERUM 9.1 mg/dL (8.5-10.1); CREATININE 0.6 mg/dL (0.6-1.3); POTASSIUM 3.7 mmol/L (3.5-5.1)
[2021-12-13 14:35] LABS: BASOPHILS % (AUTO) 0.2 % (0.0-2.0); EOSINOPHILS % (AUTO) 1.1 % (0.0-6.0); HEMATOCRIT 41 % (33-45); LYMPHOCYTES # (AUTO) 1.6 K/uL (0.8-4.8); LYMPHOCYTES % (AUTO) 23.1 % (20.0-44.0); MEAN CORPUSCULAR HGB CONC 34 g/dl (31.0-36.0); MEAN CORPUSCULAR VOLUME 90 fL (82-100); MONOCYTES # (AUTO) 0.4 K/uL (0.1-1.30); MONOCYTES % (AUTO) 5.7 % (2.0-12.0); NEUTROPHILS % (AUTO) 69.9 % (43.0-81.0); PLATELET COUNT (AUTO) 180 K/uL (150-450); RED BLOOD CELL COUNT(AUTO) 4.57 MIL/uL (4.0-5.2); WHITE BLOOD COUNT (AUTO) 7.1 K/uL (4.3-11.0)
[2021-12-13 16:00] VITALS: BP 122/62
[2021-12-13] MEDS: MAG HYDROX/AL HYDROX/SIMETH 30 ML UDC PO PRN (17:13)
[2021-12-13] MEDS: SIMETHICONE 80 MG TAB.CHEW PO PRN (17:33)
--- NOTE | 2021-12-13 19:30 | NUR ---
RN NOTE PT AWAKE, SITTING UP AT SIDE OF BED. A/OX4. SHE DENIES ANY PAIN AT THIS TIME. RESPIRATIONS EVEN/UNLABORED.ON O2 @ 2LPM VIA N/C. IV ACCESS: R-FA #22 AND R-AC #20 BOTH INTACT/PATENT. INFUSING NS @75ML/HR TO R-AC. HUGO WELL. V/S STABLE, BP 119/76. PT IN NO ACUTE DISTRESS. SAFETY MEASURES IN PLACE. WILL CONT TO MONITOR.
[2021-12-13 20:00] VITALS: BP 119/76
[2021-12-14] MEDS: IV NS 0.9% 1,000 ML IV PRN (05:11)
[2021-12-14] MEDS: BLOOD SUGAR DIAGNOSTIC 1 EACH STRIP IN SCH ×3 (06:08→17:48)
[2021-12-14] MEDS: INSULIN REGULAR, HUMAN 100 UNIT/ML 3 ML VIAL SQ PRN ×3 (06:09→17:47)
--- NOTE | 2021-12-14 07:00 | NUR ---
RN NOTE PT STABLE THROUGHOUT THE NIGHT. USING CPAP AT NIGHT. NO SOB. NO C/O PAIN. BP STABLE. ASSIST WITH ALL ADL'S PROVIDED NEEDED. SAFETY MEASURES MAINTAINED.
--- NOTE | 2021-12-14 07:30 | NUR ---
MS RN OPENING NOTE RECEIVED PATIENT AWAKE IN BED. A/O X4. NO S/SX OF ACUTE DISTRESS NOTED. NO C/O PAIN AT THIS TIME. BREATHING IS EVEN AND UNLABORED; ON ROOM AIR, TOLERATING WELL. IV ACCESS RFA#22 AND RAC#20 PATENT AND INTACT WITH NS 0.9% RUNNING AT 75MLS/HR. PT NPO EXCEPT MEDS AT THIS TIME. SAFETY MEASURES IN PLACE WITH BED LOCKED AT LOW POSITION; SIDE RAILS UP X2; CALL LIGHT WITHIN EASY REACH. WILL CONTINUE TO MONITOR PATIENT THROUGHOUT SHIFT.
[2021-12-14 08:00] VITALS: BP 130/68
[2021-12-14] MEDS: ATORVASTATIN 10 MG TABLET PO SCH (09:20)
[2021-12-14] MEDS: HEPARIN SODIUM, PORCINE 5000 UNITS/1 ML VIAL SQ SCH ×2 (09:21→21:50)
[2021-12-14] MEDS: LISINOPRIL (10MG) 10 MG TABLET PO SCH (09:27)
[2021-12-14] MEDS: CEFTRIAXONE 1 G in IV D5W 50 ML IV SCH (09:30)
[2021-12-14 16:00] VITALS: BP 96/56
--- NOTE | 2021-12-14 18:57 | NUR ---
MS RN CLOSING NOTES PATIENT STILL LAYING AWAKE IN BED. A/O X4. PATIENT WITH REGULAR AND UNLABORED BREATHING 2 LPM VIA NASAL CANULA TOLERATING WELL. NO SIGNS AND SYMPTOMS OF DISTRESS NOTED. NO COMPLAINTS OF PAIN OR DISCOMFORT NOTED AT THIS TIME. IV ACCESS RFA G #22 AND RAC#20 PATENT AND INTACT INFUSING NS @ 75 ML/HR. IV ACCESS PATENT AND INTACT. SAFETY PRECAUTIONS ENFORCED WITH BED LOCKED AND AT LOWEST POSITION. SIDERAILS UP X2. CALL LIGHT WITHIN REACH AT ALL TIMES. WILL ENDORSE CONTINUITY OF CARE TO DAY SHIFT NURSE.
[2021-12-14 20:00] VITALS: BP 122/55
--- NOTE | 2021-12-14 22:21 | NUR ---
MS RN OPENING NOTE RECEIVED PATIENT AWAKE IN BED. A/O X4. NO SIGN SOB/ DISTRESS NOTED. NO C/O PAIN AT THIS TIME. BREATHING IS EVEN AND UNLABORED; ON ROOM AIR, TOLERATING WELL. IV ACCESS RFA#22 AND RAC#20 PATENT AND INTACT WITH NS 0.9% RUNNING AT 75MLS/HR. SAFETY MEASURES IN PLACE WITH BED LOCKED AT LOW POSITION; SIDE RAILS UP X2; CALL LIGHT WITHIN EASY REACH. WILL CONTINUE TO MONITOR.
[2021-12-15] MEDS: BLOOD SUGAR DIAGNOSTIC 1 EACH STRIP IN SCH ×5 (01:05→23:40)
[2021-12-15 06:09] LABS: CALCIUM, SERUM 8.9 mg/dL (8.5-10.1); CREATININE 0.5 mg/dL (0.6-1.3); MAGNESIUM 1.6 mg/dL (1.8-2.4); POTASSIUM 3.5 mmol/L (3.5-5.1)
[2021-12-15 06:47] LABS: BASOPHILS % (AUTO) 0.2 % (0.0-2.0); EOSINOPHILS % (AUTO) 1.8 % (0.0-6.0); HEMATOCRIT 40 % (33-45); HEMOGLOBIN 13.5 g/dL (11.5-14.8); LYMPHOCYTES # (AUTO) 2.5 K/uL (0.8-4.8); LYMPHOCYTES % (AUTO) 37.5 % (20.0-44.0); MEAN CORPUSCULAR HGB CONC 34 g/dl (31.0-36.0); MEAN CORPUSCULAR VOLUME 92 fL (82-100); MONOCYTES # (AUTO) 0.4 K/uL (0.1-1.30); MONOCYTES % (AUTO) 6.8 % (2.0-12.0); NEUTROPHILS # (AUTO) 3.5 K/uL (1.8-8.9); NEUTROPHILS % (AUTO) 53.7 % (43.0-81.0); PLATELET COUNT (AUTO) 180 K/uL (150-450); RED BLOOD CELL COUNT(AUTO) 4.39 MIL/uL (4.0-5.2); WHITE BLOOD COUNT (AUTO) 6.6 K/uL (4.3-11.0)
--- NOTE | 2021-12-15 07:35 | NUR ---
ms rn received on bed, awake,alert,oriented x4,not in any form of distress,respirations even and unlabored,no sob noted, denies pain at this time.will monitor patient.
[2021-12-15 08:00] VITALS: BP 100/62
--- NOTE | 2021-12-15 09:00 | NUR ---
ms lucila victoria served,due meds given, tolerated well.
[2021-12-15] MEDS: CEFTRIAXONE 1 G in IV D5W 50 ML IV SCH (09:34)
[2021-12-15] MEDS: ATORVASTATIN 10 MG TABLET PO SCH (09:34)
[2021-12-15] MEDS: LISINOPRIL (10MG) 10 MG TABLET PO SCH (09:35)
--- NOTE | 2021-12-15 09:35 | NUR ---
rn new is site inserted atleft foreerm w/ good venous return.
[2021-12-15] MEDS: HEPARIN SODIUM, PORCINE 5000 UNITS/1 ML VIAL SQ SCH ×2 (09:37→20:19)
--- NOTE | 2021-12-15 11:32 | NUR ---
ms rn was seen by dr. brock w/ orders made and carried out.
--- NOTE | 2021-12-15 12:00 | NUR ---
ms gaytan [id number] - patient refused coverage.
[2021-12-15] MEDS: Magnesium 1GM/D5W 100ML PREMIX 100 ML IV SCH ×2 (12:38→14:06)
--- NOTE | 2021-12-15 12:58 | NUR ---
ms rn eating lunch,daughter at bedside, diana for tolerance, the ok to go home.all needs attended.
[2021-12-15 16:00] VITALS: BP 100/54
[2021-12-15] MEDS: SIMETHICONE 80 MG TAB.CHEW PO PRN (17:34)
[2021-12-15] MEDS: ACETAMINOPHEN 325 MG TABLET PO PRN (17:34)
[2021-12-15] MEDS: INSULIN REGULAR, HUMAN 100 UNIT/ML 3 ML VIAL SQ PRN ×2 (17:47→23:42)
--- NOTE | 2021-12-15 18:00 | NUR ---
ms rn cannot tolerate food, aware.
--- NOTE | 2021-12-15 19:45 | NUR ---
MS RN OPENING NOTE RECEIVED PT AWAKE IN BED. A/O X4 AND ABLE TO MAKE NEEDS KNOWN. PT ON O2 @ 2LPM VIA NC, SATURATING WELL. NO SOB OR S/S OF RESPIRATORY DISTRESS. BREATHING EVEN AND UNLABORED. IV ACCESS LFA 18 GAUGE, INTACT AND PATENT, RUNNING NS @ 75 ML/HR. SAFETY PRECAUTIONS IN PLACE. BED IN LOWEST LOCKED POSITION, HOB ELEVATED, SIDE RAILS UP X2, AND CALL LIGHT AND TABLE WITHIN REACH. ALL NEEDS MET AT THIS TIME.
[2021-12-15 20:00] VITALS: BP 111/48
[2021-12-16] MEDS: BLOOD SUGAR DIAGNOSTIC 1 EACH STRIP IN SCH ×2 (05:53→11:52)
[2021-12-16] MEDS: INSULIN REGULAR, HUMAN 100 UNIT/ML 3 ML VIAL SQ PRN ×2 (05:58→11:55)
--- NOTE | 2021-12-16 06:40 | NUR ---
MS RN CLOSING NOTE PT AWAKE IN BED. A/O X4 AND ABLE TO MAKE NEEDS KNOWN. PT ON O2 @ 2LPM VIA NC, SATURATING WELL. NO SOB OR S/S OF RESPIRATORY DISTRESS. BREATHING EVEN AND UNLABORED. IV ACCESS LFA 18 GAUGE, INTACT AND PATENT, RUNNING NS @ 75 ML/HR. SAFETY PRECAUTIONS IN PLACE AT ALL TIMES. BED IN LOWEST LOCKED POSITION, HOB ELEVATED, SIDE RAILS UP X2, AND CALL LIGHT AND TABLE WITHIN REACH. ALL NEEDS MET AT THIS TIME. Addendum: 12/16/21 at 0642 by JAMIA RANDALL RN WILL ENDORSE TO ONCOMING NURSE FOR [facility].
[2021-12-16 08:00] VITALS: BP 103/56
--- NOTE | 2021-12-16 08:10 | NUR ---
MS RN OPENING NOTE Patient in bed, awake. A/O x 4, able to make needs known. On O2 at 2 LPM, breathing evenly and unlabored. No SOB or s/s of distress noted. IV access on LFA #18 infusing NS at 75 ml/hr. Safety precautions in place: bed in low, locked position; siderails up x 2; call light within reach. Will continue to monitor.
[2021-12-16 09:31] VITALS: BP 103/56
[2021-12-16] MEDS: ATORVASTATIN 10 MG TABLET PO SCH (09:31)
[2021-12-16] MEDS: CEFTRIAXONE 1 G in IV D5W 50 ML IV SCH (09:31)
[2021-12-16] MEDS: LISINOPRIL (10MG) 10 MG TABLET PO SCH (09:31)
[2021-12-16] MEDS: MAG HYDROX/AL HYDROX/SIMETH 30 ML UDC PO PRN (09:41)
--- NOTE | 2021-12-16 09:41 | NUR ---
RN NOTE Patient complained of indigestion, PRN Maalox given. Will continue to monitor patient.
[2021-12-16] MEDS: SIMETHICONE 80 MG TAB.CHEW PO PRN (16:34)
--- NOTE | 2021-12-16 16:34 | NUR ---
RN NOTE Patient complained of gas in the stomach, PRN Mylicon given. Will continue to monitor patient.
--- NOTE | 2021-12-16 17:56 | NUR ---
DISCHARGE NOTE Received order for discharge. Patient is A/O x 4, able to make needs known. On O2 at 2 LPM, breathing evenly and unlabored. No SOB or s/s of distress noted. Discharge instructions given both verbally and in written form, patient verbalized understanding. All belongings accounted for, belonging sheet signed. Patient denies any pain or discomfort at this time. IV access removed, catheter tip intact. Pressure dressing applied, no signs of bleeding noted. ID band removed. Patient left in stable condition via private car with daughter. Addendum: 12/16/21 at 1803 by NICOLETTE LORENZO RN ADD: Photo of redness of nose bridge taken and placed in chart.
== END 2021-12-16 17:51 | disposition home or self-care (01) | DRG 394 ==
LOC: ER 16:36 → TELE 20:32 → MED 12-09 01:05
PROVIDERS: ADMIT Internal Medicine; ATTEND Legal Medicine
DX: K42.0 Umbilical hernia with obstruction, without gangrene (principal); N39.0 Urinary tract infection, site not specified; E44.1 Mild protein-calorie malnutrition; D68.59 Other primary thrombophilia; E66.2 Morbid (severe) obesity with alveolar hypoventilation; Z68.42 Body mass index [BMI] 45.0-49.9, adult; E11.9 Type 2 diabetes mellitus without complications; I10 Essential (primary) hypertension; Z79.84 Long term (current) use of oral hypoglycemic drugs; Z87.442 Personal history of urinary calculi; Z79.899 Other long term (current) drug therapy; N20.0 Calculus of kidney; K76.0 Fatty (change of) liver, not elsewhere classified; Z87.891 Personal history of nicotine dependence; J44.9 Chronic obstructive pulmonary disease, unspecified; Z20.822 Contact with and (suspected) exposure to COVID-19
CPT/HCPCS: 36415; 74018; 74021; 74250-TC; 80048-TC; 80053-TC; 80076-TC; 81001; 82962-TC; 83605-TC; 83690-TC; 83735-TC; 84100-TC; 85025-TC; 87081-TC; 87086-TC; 94660; 94760-TC; 94799-TC; C9803; G0378; J0696; J1170; J1644; J1815; J1885; J2270; J2405; J3475; J7030; J7060; Q9963

== ENCOUNTER 2025-02-13 16:52 | Emergency (ER) | payer MEDICARE, OTHER ==
[~2025-02-13] VITALS: Ht 167.6 cm; Wt 122.5 kg
[~2025-02-13 16:52] MED LIST changes: +ATOR10TA PO; +CIPR-262 PO; +METF-440 PO; -METF750T46 PO; +METR500T PO
[2025-02-13] MEDS ORDERED: LIDOCAINE 5% (PATCH) 1 EA PATCH TP ONE (18:04)
[2025-02-13] MEDS ORDERED: KETOROLAC TROMETHAMINE 15 MG/ML VIAL ONE (18:04)
[2025-02-13 18:06] LABS: APPEARANCE,URINE SLIGHTLY CLOUDY (CLEAR); BILIRUBIN,URINE NEGATIVE (NEGATIVE); BLOOD, URINE 2+ Ery/uL (NEGATIVE); COLOR,URINE YELLOW (YELLOW); KETONES,URINE NEGATIVE (NEGATIVE); LEUKOCYTE ESTERASE ,URINE 1+ (NEGATIVE); NITRITE, URINE POSITIVE (NEGATIVE); PROTEIN,URINE 2+ mg/dl (NEGATIVE); UGLUCOSE 3+ mg/dL (NEGATIVE); UROBILINOGEN,URINE 0.2 EU/dL (0.2)
[2025-02-13 18:15] LABS: BACTERIA,URINE Many /HPF (None Seen)
[2025-02-13 18:16] LABS: ADD URINE CULTURE YES; SQUAMOUS EPITHELIAL CELL,UR Few /HPF (None Seen)
[2025-02-13] MEDS: KETOROLAC TROMETHAMINE 15 MG/ML VIAL IM ONE (18:20)
[2025-02-13] MEDS: LIDOCAINE 5% (PATCH) 1 EA PATCH TP SCH (18:20)
[2025-02-13] MEDS ORDERED: LIDO30AD10 TP (18:38)
[2025-02-13] MEDS ORDERED: TRAM50TA2 PO (18:38)
[2025-02-13] MEDS ORDERED: IBUP-1953 PO (18:38)
[2025-02-13] MEDS ORDERED: NITR100C6 PO (18:51)
[2025-02-13 19:04] VITALS: BP 140/70; TEMP 98.6; O2SAT 99
== END 2025-02-13 19:05 | disposition home or self-care (01) ==
LOC: ER 17:20
DX: N39.0 Urinary tract infection, site not specified (principal); I10 Essential (primary) hypertension; E11.9 Type 2 diabetes mellitus without complications; F17.200 Nicotine dependence, unspecified, uncomplicated; J44.9 Chronic obstructive pulmonary disease, unspecified; Z79.84 Long term (current) use of oral hypoglycemic drugs; Z79.899 Other long term (current) drug therapy; Z88.0 Allergy status to penicillin; Z92.3 Personal history of irradiation
CPT/HCPCS: 99283; 96372; 81001; J1885; 87086-TC